=== PATIENT | male | born 1955 | race Caucasian/White ===

== ENCOUNTER → 2017-08-16 12:23 | Outpatient (CLI) | payer OTHER, SELFPAY ==
--- NOTE | 2017-08-16 | DI.ECHO.S_ITS ---
[place] [facility]---------+ [facility] +---------+ : : [address] : [address] : : : : [id number] : : : : Phone: [phone]+ Echocardiogram Report + + :Name: DEX ENCINAS Study Date: 08/16/2017 Height: 70 in : :[facility] Weight: 182 lb : : Gender: Male BSA: 2.0 m2 : :: 1955 Age: 62 yrs BP: 126/80 mmHg: :Reason For Study: Palpitations : : Performed By: Dari Torres : :Referring: JUSTIN RODRIGUEZ : + + Interpretation Summary The left ventricle is normal in size. The ejection fraction is estimated to be 60-65%. The right ventricle is mildly dilated. The right ventricular systolic function is normal. No significant valvular pathology seen. Procedure: A two-dimensional transthoracic echocardiogram with color flow and Doppler was performed. The study quality was technically good. There is no prior echocardiogram noted for this patient. The patient was in normal sinus rhythm during the exam. Left Ventricle: The left ventricle is normal in size. Proximal septal thickening is noted. There is no echo evidence for significant left ventricular outflow tract obstruction. There is no thrombus. The ejection fraction is estimated to be 60-65%. There are no focal wall motion abnormalities. Assessment of diastolic parameters indicates a relaxation abnormality of the left ventricle, consistent with normal filling pressures. Right Ventricle: The right ventricle is mildly dilated. The right ventricular systolic function is normal. Atria: The left atrium is moderately dilated. Right atrial size is normal. The interatrial septum is intact with no evidence for an atrial septal defect. Mitral Valve: The mitral valve leaflets appear mildly thickened, but open well. There is trace mitral regurgitation. Aortic Valve: The aortic valve is trileaflet. The aortic valve opens well. There is no aortic valve stenosis. There is trace aortic regurgitation. Tricuspid Valve: The tricuspid valve is normal in structure and function. The right ventricular systolic pressure is estimated at 22 mmHg assuming a right atrial pressure of 3 mm Hg. There is trace tricuspid regurgitation. Pulmonic Valve: The pulmonic valve is not well seen, but is grossly normal. There is no pulmonic valvular regurgitation. Great Vessels: The aortic root is normal size. The dimensions of the ascending aorta are normal. The IVC is of normal diameter and collapses greater than 50% with a sniff. This suggests a low right atrial pressure of 3 mm Hg. Pericardium/ Pleura There is no pericardial effusion. There is no pleural effusion. MMode/2D Measurements & Calculations LVIDd: 5.0 cm Ao root diam: 3.7 cm LVIDs: 3.2 cm Aortic Jxn: 2.9 cm FS: 36.9 % asc Aorta Diam: 3.3 cm EPSS: 0.96 cm Ao Arch Diam (Prox Trans): 3.4 cm IVSd: 0.94 cm LVPWd: 0.82 cm LV denise. diameter/BSA (cm/m^2): 2.5 LV sys. diameter/BSA (cm/m^2): 1.6 LA dimension: 4.3 cm RA long axis: 5.0 cm LA A2 area: 24.6 cm2 RA area: 17.9 cm2 LA A4 area: 28.5 cm2 RA vol: 54.7 ml LA length (vol): 6.0 cm RA : 27.3 ml/m2 LA vol: 99.7 ml IVC diam: 1.9 cm LA vol index: 49.7 ml/m2 RVDd major: 6.3 cm RVD1 (basal): 4.3 cm RVD2 (mid): 4.2 cm TAPSE: 3.0 cm Doppler Measurements & Calculations Ao V2 max: 176.9 cm/sec MV E max alfredo: 79.4 cm/sec Ao V2 mean: 117.0 cm/sec MV A max alfredo: 105.8 cm/sec Ao max P.5 mmHg MV E/A: 0.75 Ao mean P.2 mmHg Med Peak E' Alfredo: 6.1 cm/sec Ao V2 VTI: 32.4 cm E/E' med: 13.0 Lat Peak E' Alfredo: 6.6 cm/sec E/E' lat: 12.0 E/e' average: 12.5 MV dec time: 0.16 sec MV P1/2t: 50.1 msec TR max alfredo: 217.3 cm/sec MV P1/2t max alfredo: 78.9 cm/sec TR max P.9 mmHg MVA(P1/2t): 4.4 cm2 PA V2 max: 92.1 cm/sec PA V2 mean: 61.5 cm/sec PA mean P.7 mmHg PA Accel Time: 0.12 sec Reading Physician:PM
== END ==
PROVIDERS: Family Provider Registered Nurse; PCP Registered Nurse; Visit Provider Registered Nurse
DX: R00.2 Palpitations (principal)
CPT/HCPCS: 93306

== ENCOUNTER → 2017-11-06 09:07 | Outpatient (CLI) | payer OTHER, SELFPAY ==
--- NOTE | 2017-11-06 | DI.CT.S_ITS ---
PROCEDURE: CT CHEST WO CON INDICATIONS: CHEST PAIN TECHNIQUE: Noncontrast 5 mm thick sections acquired from the pulmonary apices to the posterior costophrenic angles. 7 mm thick coronal and sagittal MIP reformats were then acquired. For radiation dose reduction, the following was used: automated exposure control, adjustment of mA and/or kV according to patient size. COMPARISON: None. FINDINGS: Image quality: Excellent. Lungs and pleura: No acute air space opacities. No pleural effusions or pneumothorax. Central and peripheral airways are patent and normal in caliber. Mediastinum: Heart size is normal. No pericardial effusion. No mediastinal adenopathy by size criteria. Thoracic aorta and central pulmonary arteries are normal in size. Trace atheromatous calcifications are present at the thoracic aortic arch. Esophagus is normal in caliber. No hiatal hernia. Bones and chest wall: No suspicious bony lesions. No vertebral body compression fractures. No axillary or supraclavicular adenopathy by size criteria. Thyroid gland is unremarkable. Abdomen: Visualized upper abdominal solid organs and bowel loops appear normal in the absence of contrast. IMPRESSION: 1. No acute findings. No findings to explain patient's chest pain. Dictated by: Aminata Jordan M.D. on 11/06/2017 at 12:16 Approved by: Aminata Jordan M.D. on 11/06/2017 at 12:21
== END ==
PROVIDERS: PCP Registered Nurse; Visit Provider Registered Nurse
DX: R07.9 Chest pain, unspecified (principal)
CPT/HCPCS: 71250

== ENCOUNTER 2017-12-02 05:59 | Emergency (ER) | payer OTHER, SELFPAY ==
--- NOTE | 2017-12-02 06:00 | ED.CHESTPAIN ---
HPI - Chest Pain General Chief Complaint: Chest Pain Stated Complaint: chest pain Time Seen by Provider: 12/02/17 06:00 Source: patient Mode of arrival: ambulatory Limitations: no limitations History of Present Illness HPI narrative: 62-year-old male here for evaluation of left-sided chest pain. Patient states that it started yesterday sometime between 930 and 10 o'clock in the morning. He states that it was a fairly sudden onset however gradually worsened. He states that he had it all day yesterday. Went to bed with it last night. Woke up with it this morning. He states when he woke up with it this morning it was more ?sharp ?so he came in to be evaluated. He had chest pain earlier this year for which he was evaluated for. He states that he was seen by his doctor and had an echocardiogram which I was able to see the results which showed a normal ejection fraction and normal cardiac wall motion. He states that the pain today is different from the pain earlier in the year. He states that the pain today is more sharp, worse when he touches it, pinpoint, worse when he takes a big deep breath, and worse with moving his left arm. No nausea vomiting. No fevers. No shortness of breath. No lower extremity swelling. Related Data Allergies Allergy/AdvReac Type Severity Reaction Status Date / Time No Known Drug Allergies Allergy Verified 12/02/17 06:09 Review of Systems Constitutional Denies fatigue, Denies fever(s) and Denies headache(s) ENT Ears, Nose, Mouth, and Throat: Denies vertigo and Denies headache(s) Cardiovascular Reports chest pain, Denies palpitations and Denies dyspnea Respiratory Denies cough, Denies dyspnea and Denies wheezing Gastrointestinal Gastrointestinal: Denies abdominal pain, Denies nausea and Denies vomiting Genitourinary Denies dysuria Musculoskeletal Denies myalgias and Denies arthralgias Integumentary/Breasts Denies lesions and Denies rash Neurologic Denies vertigo and Denies headache(s) Endocrine Denies fatigue and Denies palpitations Hematologic/Lymphatic Denies easy bleeding and Denies easy bruising Allergic/Immunologic Denies wheezing PENDING SALE TO [facility] Medical History Hypertension (Acute) Surgical History No pertinent past surgical history (Acute) Social History Smoking Status: Former smoker Exam Initial Vital Signs Initial Vital Signs: Vital Signs Temperature 98.2 F 12/02/17 06:06 Pulse Rate 68 12/02/17 06:06 Respiratory Rate 17 12/02/17 06:06 Blood Pressure 190/103 H 12/02/17 06:06 Pulse Oximetry 99 12/02/17 06:06 Const General: cooperative, healthy appearing, comfortable, well developed, well groomed and No acute distress Orientation: alert, awake and oriented x3 HENMT Head: normal to inspection and normocephalic Chest Other: Patient with pinpoint chest tenderness just left of the sternum at the level of the nipple. Improves with moving superior and inferior lateral to this point. No crepitus felt. Resp Effort & Inspection: normal respiratory effort Auscultation: clear to auscultation bilaterally Cardio Rate: regular rate Rhythm: regular rhythm Pulses: radial pulses present GI Inspection: non-distended Palpation: soft, No firm and No tender Skin Lesions: no lesions Rashes: no rashes Neuro General: alert, awake and oriented x3 Extrem General: normal to inspection, capillary refill normal, no pedal edema and No edema Psych Appearance: grossly normal and well kempt Course Orders Ordered: ED Orders 12/02/17 06:00 B Type Natriuretic Peptide Stat Basic Metabolic Panel Stat Complete Blood Count AUTO DIFF Stat Troponin I Stat 12/02/17 06:01 XR chest 1V Stat EKG-12 Lead Stat Discontinued Medications Aspirin (Aspirin Chew) 324 mg PO NOW ONE Stop: 12/02/17 06:03 Last Admin: 12/02/17 06:24 Dose: Vital Signs - 8 hr 12/02/17 06:06 Temperature 98.2 F Pulse Rate 68 Respiratory Rate 17 Blood Pressure 190/103 H Pulse Oximetry 99 MDM - Chest Pain Medical Records Data Attestation: I reviewed the patient's medical records. Lab Data Attestation: I reviewed the patient's lab results. Result diagrams: 12/02/17 06:00 12/02/17 06:00 Lab Results 12/02/17 12/02/17 Range/Units 06:00 06:00 WBC 7.1 (4.5-11.0) X10^3/uL RBC 4.83 (4.5-5.9) X10^6/uL Hgb 14.7 (13.5-17.5) g/dL Hct 42.4 (41-53) % MCV 87.8 (80-100) fL MCH 30.5 (26-34) PG MCHC 34.7 (30-36) % RDW 13.0 (11.6-14.8) % Plt Count 246 (150-400) X10^3/uL Neut % (Auto) 60.3 (50-75) % Lymph % (Auto) 23.7 L (25-40) % [place] % (Auto) 11.4 (3-14) % Eos % (Auto) 3.7 (2-4) % Baso % (Auto) 0.9 (0-2) % Neut # (Auto) 4300 (5368-0219) /uL Sodium 141 (137-145) mmol/L Potassium 4.2 (3.4-5.1) mmol/L Chloride 104 (98-107) mmol/L Carbon Dioxide 26 (22-32) mmol/L BUN 20 (9-20) mg/dL Creatinine 1.00 (0.66-1.25) mg/dL Estimated GFR > 60.0 (>60) mL/min BUN/Creatinine Ratio 20.0 (6-22) Glucose 125 H (80-110) mg/dL Calcium 11.2 H (8.4-10.2) mg/dL Troponin I < 0.012 (0.01-0.034) ng/mL B-Natriuretic Peptide < 100.0 (<100) Imaging Data Chest x-ray: Attestation: I personally reviewed and interpreted this imaging study as follows: My impression: No pneumothorax No focal consolidations Normal size heart ECG Data Attestation: I personally reviewed and interpreted this ECG as follows: Prior ECG tracings: available for review Interpretation: Sinus rhythm Ventricular rate is 63 Occasional PVCs Normal QRS Normal QTC No ST T wave changes Comparison EKG dated 08/21/2015 This EKG has inverted T-waves in lead V4 V5 and V6 which were not present today's MDM Narrative Medical decision making narrative: Patient with a nonischemic EKG. Has a negative troponin greater than 12 hr after the onset of his symptoms. Labs unremarkable. Has reproducible left-sided chest pain. Have low suspicion for ACS given his presentation. Discussed this with the patient. Informed him that he needed to contact his primary care doctor for follow-up. He was given return precautions. He expressed understanding and agreement with plan Discharge Plan Departure Patient Disposition: Home Clinical Impression: Acute chest wall pain Instructions: DI for Costochondritis Activity Restrictions/Additional Instructions: Continue all of your medications as directed. Call your primary care doctor for a follow-up. Return to the emergency department for any new or worsening symptoms
--- NOTE | 2017-12-02 06:01 | DI.RAD.S_ITS ---
PROCEDURE: XR CHEST 1V INDICATIONS: chest pain TECHNIQUE: One view of the chest was acquired. COMPARISON: [facility], , CHEST 2 VIEW, 04/08/2013, 7:09. FINDINGS: Surgical changes and devices: None. Lungs and pleura: No pleural effusions or pneumothorax. Lungs are clear. Mediastinum: Mediastinal contours appear normal. Heart size is normal. Bones and chest wall: No suspicious bony lesions. Overlying soft tissues appear unremarkable. IMPRESSION: No acute cardiopulmonary disease process. Dictated by: Delia Bush MD, PhD on 12/02/2017 at 7:28 Approved by: Delia Bush MD, PhD on 12/02/2017 at 7:28
[2017-12-02 06:06] VITALS: BP 190/103; PULSE 68; RESP 17; TEMP 36.8; O2SAT 99; BMI 25.8
[2017-12-02 06:13] LABS: Add Manual Diff / Slide Review NO; Basophils Percent Auto 0.9 % (0-2); Eosinophils Percent Auto 3.7 % (2-4); Hematocrit 42.4 % (41-53); Hemoglobin 14.7 g/dL (13.5-17.5); Lymphocytes Percent Auto 23.7 % (25-40); Mean Corpuscular HGB Conc 34.7 % (30-36); Mean Corpuscular Hemoglobin 30.5 PG (26-34); Mean Corpuscular Volume 87.8 fL (80-100); Monocytes Percent Auto 11.4 % (3-14); Neutrophils Absolute Auto 4300 /uL (3000-5900); Neutrophils Percent Auto 60.3 % (50-75); Platelet Count 246 X10^3/uL (150-400); Red Blood Cell Count 4.83 X10^6/uL (4.5-5.9); White Blood Cell Count 7.1 X10^3/uL (4.5-11.0)
[2017-12-02 06:28] LABS: Blood Urea Nitrogen 20 mg/dL (9-20); Calcium 11.2 mg/dL (8.4-10.2); Carbon Dioxide 26 mmol/L (22-32); Chloride 104 mmol/L (98-107); Estimated Glomerular Filt Rate > 60.0 mL/min (>60); Glucose 125 mg/dL (80-110); HEMOLYSIS < 15 (0-50); Potassium 4.2 mmol/L (3.4-5.1); Sodium 141 mmol/L (137-145)
[2017-12-02 06:33] LABS: B Type Natriuretic Peptide < 100.0 (<100)
[2017-12-02 06:39] LABS: Troponin I < 0.012 ng/mL (0.01-0.034)
[2017-12-02 06:45] VITALS: BP 135/89; PULSE 57; RESP 20; O2SAT 96
--- NOTE | 2017-12-05 16:10 | PC.NURSE ---
follow up call, pt feeling fine, had wonderful visits, no improvement needed.
== END 2017-12-02 06:58 | disposition home or self-care (01) ==
PROVIDERS: Emergency Provider Emergency Medicine; PCP Registered Nurse
DX: R07.89 Other chest pain (principal)
CPT/HCPCS: 36591; 71045; 80048; 83880; 84484; 85025; 93005; 99282; 99285

== ENCOUNTER 2018-01-19 16:38 | Emergency (ER) | payer OTHER, SELFPAY ==
--- NOTE | 2018-01-19 16:43 | DI.RAD.S_ITS ---
PROCEDURE: XR CHEST 1V INDICATIONS: chest pain TECHNIQUE: One view of the chest was acquired. COMPARISON: [facility], CR, XR CHEST 1V, 12/02/2017, 6:12. FINDINGS: Surgical changes and devices: None. Lungs and pleura: No pleural effusions or pneumothorax. Minimal increased pulmonary vascularity. Mediastinum: Mediastinal contours appear normal. Heart size is minimally prominent. Bones and chest wall: No suspicious bony lesions. Overlying soft tissues appear unremarkable. IMPRESSION: Minimal increased pulmonary vascularity, suggestive of edema. Dictated by: Angela Chin M.D. on 01/19/2018 at 17:53 Approved by: Angela Chin M.D. on 01/19/2018 at 17:54
[2018-01-19 16:50] VITALS: BP 159/82; PULSE 64; RESP 18; TEMP 37.1; O2SAT 100; BMI 25.1
--- NOTE | 2018-01-19 16:54 | ED.CHESTPAIN ---
HPI - Chest Pain General Chief Complaint: Chest Pain Stated Complaint: left side neck and arm pain,elevated BP Time Seen by Provider: 01/19/18 16:42 Source: patient Mode of arrival: ambulatory Limitations: no limitations History of Present Illness HPI narrative: Patient is a 62-year-old male here for evaluation of left upper back pain that he has had for the past 2 days. He states that it is now radiating down his left arm and up into the left side of his neck. Denies any specific trauma. States that it is ?deep down inside ?. States that it does get worse with movement of his left arm. He cannot make it worse with palpation. No shortness of breath. Has never had anything like this before. No abdominal pain. Related Data Previous Rx's Medication Instructions Recorded cyclobenzaprine 10 mg PO TID PRN #12 tab 01/19/18 Allergies Allergy/AdvReac Type Severity Reaction Status Date / Time No Known Drug Allergies Allergy Verified 01/19/18 16:55 Review of Systems Constitutional Denies fever(s), Denies headache(s) and Denies weakness ENT Ears, Nose, Mouth, and Throat: Denies headache(s), Denies neck mass, Reports neck pain, Denies disequilibrium, Denies sinus pressure and Denies sore throat Cardiovascular Denies chest pain, Denies chest pain with activity, Denies palpitations and Denies dyspnea Respiratory Denies cough and Denies dyspnea Gastrointestinal Gastrointestinal: Denies abdominal pain, Denies nausea and Denies vomiting Musculoskeletal Reports back pain (Left upper back), Denies myalgias, Reports arthralgias (Left shoulder), Denies limited range of motion, Denies muscle weakness, Reports neck pain, Reports radiating pain into limb (Left arm) and Reports tingling (Left arm) Integumentary/Breasts Denies lesions and Denies rash Neurologic Denies headache(s), Reports tingling (Left arm), Denies disequilibrium and Denies weakness Endocrine Denies palpitations Hematologic/Lymphatic Comments: not on anticoagulation Allergic/Immunologic Denies urticaria [facility] Social History Smoking Status: Former smoker Exam Initial Vital Signs Initial Vital Signs: Vital Signs Temperature 98.7 F 01/19/18 16:50 Pulse Rate 64 01/19/18 16:50 Respiratory Rate 18 01/19/18 16:50 Blood Pressure 159/82 H 01/19/18 16:50 Pulse Oximetry 100 01/19/18 16:50 Const General: cooperative, healthy appearing, comfortable, well developed, well groomed and No acute distress Orientation: alert, awake and oriented x3 HENMT Head: normal to inspection, normocephalic and atraumatic Neck Neck: full ROM and no meningeal signs Resp Effort & Inspection: normal respiratory effort Auscultation: clear to auscultation bilaterally Cardio Rate: regular rate Rhythm: regular rhythm Pulses: radial pulses present on the left Back/Spine/Pelvis Other: Patient with out tenderness to palpation around the left shoulder. Unable to reproduce any of his symptoms. Skin Lesions: no lesions Rashes: no rashes Neuro Other: Sensation intact to light touch left upper extremity Extrem Left upper extremity: normal to inspection, full ROM, normal capillary refill and shoulder/upper arm Details: inspection abnormal and normal ROM; no tenderness and no swelling; no edema Course Orders Ordered: ED Orders 01/19/18 16:43 XR chest 1V Stat EKG-12 Lead Stat 01/19/18 17:20 Complete Blood Count AUTO DIFF Stat Comprehensive Metabolic Panel Stat Lipase Stat Partial Thromboplastin Time Stat Prothrombin Time INR Stat Troponin I Stat Vital Signs - 8 hr 01/19/18 16:50 01/19/18 17:30 Temperature 98.7 F Pulse Rate 64 63 Respiratory Rate 18 14 Blood Pressure 159/82 H Blood Pressure [Right Arm] 120/78 Pulse Oximetry 100 96 MDM - Chest Pain Lab Data Attestation: I reviewed the patient's lab results. Result diagrams: 01/19/18 17:20 01/19/18 17:20 Lab Results 01/19/18 01/19/18 01/19/18 Range/Units 17:20 17:20 17:20 WBC 9.1 (4.5-11.0) X10^3/uL RBC 4.70 (4.5-5.9) X10^6/uL Hgb 14.1 (13.5-17.5) g/dL Hct 41.9 (41-53) % MCV 89.2 (80-100) fL MCH 30.0 (26-34) PG MCHC 33.6 (30-36) % RDW 13.1 (11.6-14.8) % Plt Count 255 (150-400) X10^3/uL Neut % (Auto) 66.0 (50-75) % Lymph % (Auto) 23.8 L (25-40) % [place] % (Auto) 7.6 (3-14) % Eos % (Auto) 1.9 L (2-4) % Baso % (Auto) 0.7 (0-2) % Neut # (Auto) 6000 H (5452-4403) /uL PT 11.9 (10.1-12.7) SECONDS INR 1.1 (0.9-1.3) APTT 29 (26.4-36.2) SECONDS Sodium (137-145) mmol/L Potassium (3.4-5.1) mmol/L Chloride (98-107) mmol/L Carbon Dioxide (22-32) mmol/L BUN (9-20) mg/dL Creatinine (0.66-1.25) mg/dL Estimated GFR (>60) mL/min BUN/Creatinine Ratio (6-22) Glucose (80-110) mg/dL Calcium (8.4-10.2) mg/dL Total Bilirubin (0.2-1.3) mg/dL AST (17-59) IU/L ALT (21-72) IU/L Alkaline Phosphatase (38-126) U/L Troponin I < 0.012 (0.01-0.034) ng/mL Total Protein (6.3-8.2) g/dL Albumin (3.5-5.0) g/dL Globulin (1.7-4.1) g/dL Albumin/Globulin Ratio (1.0-2.8) Lipase (23-300) U/L 11/25/18 Range/Units 17:20 WBC (4.5-11.0) X10^3/uL RBC (4.5-5.9) X10^6/uL Hgb (13.5-17.5) g/dL Hct (41-53) % MCV (80-100) fL MCH (26-34) PG MCHC (30-36) % RDW (11.6-14.8) % Plt Count (150-400) X10^3/uL Neut % (Auto) (50-75) % Lymph % (Auto) (25-40) % [place] % (Auto) (3-14) % Eos % (Auto) (2-4) % Baso % (Auto) (0-2) % Neut # (Auto) (8982-2513) /uL PT (10.1-12.7) SECONDS INR (0.9-1.3) APTT (26.4-36.2) SECONDS Sodium 140 (137-145) mmol/L Potassium 4.0 (3.4-5.1) mmol/L Chloride 101 (98-107) mmol/L Carbon Dioxide 27 (22-32) mmol/L BUN 21 H (9-20) mg/dL Creatinine 1.00 (0.66-1.25) mg/dL Estimated GFR > 60.0 (>60) mL/min BUN/Creatinine Ratio 21.0 (6-22) Glucose 113 H (80-110) mg/dL Calcium 12.4 H (8.4-10.2) mg/dL Total Bilirubin 0.3 (0.2-1.3) mg/dL AST 34 (17-59) IU/L ALT 46 (21-72) IU/L Alkaline Phosphatase 61 (38-126) U/L Troponin I (0.01-0.034) ng/mL Total Protein 6.9 (6.3-8.2) g/dL Albumin 4.3 (3.5-5.0) g/dL Globulin 2.6 (1.7-4.1) g/dL Albumin/Globulin Ratio 1.7 (1.0-2.8) Lipase 125 (23-300) U/L Imaging Data Chest x-ray: Radiologist's impression: [address] [address] XRay Report Signed Patient: Stefan Acuña LMR#: [id number] : 4Acct:[id number] Age/Sex: 62 / MDate of Service: 01/19/18 Loc: ED Accession Number: [id number] Procedure: XR chest 1V Ordering Provider: Pardeep Gonzalez D.O. PROCEDURE: XR CHEST 1V INDICATIONS: chest pain TECHNIQUE: One view of the chest was acquired. COMPARISON: [facility], CR, XR CHEST 1V, 12/02/2017, 6:12. FINDINGS: Surgical changes and devices: None. Lungs and pleura: No pleural effusions or pneumothorax. Minimal increased pulmonary vascularity. Mediastinum: Mediastinal contours appear normal. Heart size is minimally prominent. Bones and chest wall: No suspicious bony lesions. Overlying soft tissues appear unremarkable. IMPRESSION: Minimal increased pulmonary vascularity, suggestive of edema. Dictated by: Angela Chin M.D. on 01/19/2018 at 17:53 Approved by: Angela Chin M.D. on 01/19/2018 at 17:54 ECG Data Attestation: I personally reviewed and interpreted this ECG as follows: Prior ECG tracings: not available for review Interpretation: Sinus rhythm Ventricular rate is 62 Normal axis Normal intervals Normal QRS Nonspecific ST T wave changes MDM Narrative Medical decision making narrative: Patient with 2 days of consistent symptoms. Was not reproducible with palpation however has and nonischemic EKG and negative troponin. Low suspicion for ACS. Also has a normal lipase and no abdominal pain and no CVA tenderness. No rashes. Hold on further workup for now. Patient was instructed to continue his anti-inflammatories. Will send home with prescription for muscle relaxers. He was given return precautions. He expressed understanding and agreement this plan. Discharge Plan Departure Patient Disposition: Home Clinical Impression: Muscle strain Instructions: DI for Muscle Strain Activity Restrictions/Additional Instructions: Recommend that you continue the anti-inflammatory that your taking with food. Contact your primary care doctor for follow-up. If your symptoms worsened he develop any new symptoms to include chest pain or shortness of breath please return to the emergency department. Prescriptions: New cyclobenzaprine 10 mg tablet 10 mg PO TID PRN (Reason: muscle spasm) Qty: 12 RF: 0
[2018-01-19 17:30] VITALS: BP 120/78; PULSE 63; RESP 14; O2SAT 96
[2018-01-19 17:33] LABS: Add Manual Diff / Slide Review NO; Basophils Percent Auto 0.7 % (0-2); Eosinophils Percent Auto 1.9 % (2-4); Hematocrit 41.9 % (41-53); Hemoglobin 14.1 g/dL (13.5-17.5); Lymphocytes Percent Auto 23.8 % (25-40); Mean Corpuscular HGB Conc 33.6 % (30-36); Mean Corpuscular Volume 89.2 fL (80-100); Monocytes Percent Auto 7.6 % (3-14); Neutrophils Absolute Auto 6000 /uL (3000-5900); Platelet Count 255 X10^3/uL (150-400); Red Cell Distribution Width 13.1 % (11.6-14.8); White Blood Cell Count 9.1 X10^3/uL (4.5-11.0)
[2018-01-19 17:40] LABS: INR 1.1 (0.9-1.3); Prothrombin Time 11.9 SECONDS (10.1-12.7)
[2018-01-19 17:43] LABS: PTT Partial Thromboplastin Tim 29 SECONDS (26.4-36.2)
[2018-01-19 17:44] LABS: Alanine Aminotransferase 46 IU/L (21-72); Albumin 4.3 g/dL (3.5-5.0); Albumin Globulin Ratio 1.7 (1.0-2.8); Alkaline Phosphatase 61 U/L (38-126); Aspartate Aminotransferase 34 IU/L (17-59); Bilirubin Total 0.3 mg/dL (0.2-1.3); Blood Urea Nitrogen 21 mg/dL (9-20); Calcium 12.4 mg/dL (8.4-10.2); Carbon Dioxide 27 mmol/L (22-32); Chloride 101 mmol/L (98-107); Estimated Glomerular Filt Rate > 60.0 mL/min (>60); Globulin 2.6 g/dL (1.7-4.1); Glucose 113 mg/dL (80-110); HEMOLYSIS < 15 (0-50); Lipase 125 U/L (23-300); Sodium 140 mmol/L (137-145); Total Protein 6.9 g/dL (6.3-8.2)
[2018-01-19 18:05] LABS: Troponin I < 0.012 ng/mL (0.01-0.034)
[2018-01-19 18:28] VITALS: BP 113/72; PULSE 55; RESP 16; O2SAT 95
== END 2018-01-19 18:28 | disposition home or self-care (01) ==
PROVIDERS: Emergency Provider Emergency Medicine; PCP Registered Nurse
DX: T14.8XXA Other injury of unspecified body region, initial encounter (principal)
CPT/HCPCS: 36591; 71045; 80053; 83690; 84484; 85025; 85610; 85730; 93005; 99282; 99285

== ENCOUNTER → 2018-06-20 08:56 | Outpatient (CLI) | payer OTHER, SELFPAY ==
--- NOTE | 2018-06-20 09:45 | DI.CT.S_ITS ---
PROCEDURE: CT KIDNEY URETER BLADDER (KUB) INDICATIONS: HISTORY OF KIDNEY STONES/GROSS HEMATURIA TECHNIQUE: Noncontrast 5 mm thick sections acquired from the diaphragms to the symphysis. 5 mm thick coronal and sagittal reformats were then performed. For radiation dose reduction, the following was used: automated exposure control, adjustment of mA and/or kV according to patient size. COMPARISON: [facility], CR, XR CHEST 1V, 01/19/2018, 17:13. [facility], CR, XR CHEST 1V, 12/02/2017, 6:12. [facility], CT, CT CHEST WO CON, 11/06/2017, 9:13. [facility], CT, KIDNEY/ URETER/BLADDER, 07/28/2007, 10:16. [facility], CT, KIDNEY/ URETER/BLADDER, 07/24/2007, 19:24. FINDINGS: Image quality: Excellent. Lung bases: Lung bases are clear. Heart size is normal. Urinary system: Both kidneys are normal in size. No right-sided kidney stones but there is a large dense calculus involving the ureteropelvic junction on the left measuring up to 1.5 cm AP and 1.0 cm transverse, with an internal radiodensity of up to 1270 Hounsfield units. No right-sided ydronephrosis or perinephric fat stranding but there is mild hydronephrosis and slight perinephric edema on the left. The right ureter appears non-dilated throughout its expected course of the left ureter is mildly dilated to the area just above the bladder level where 2 separate small calculi can be seen within the far distal left ureter measuring up to 2-3 mm in maximal dimension. Bladder wall thickness is normal; no calcified bladder stones. Other solid organs: Liver is normal in size. Gallbladder appears normal. Pancreas is normal in contours. Spleen is normal in size. No adrenal nodules. Peritoneum and bowel: Unenhanced bowel loops demonstrate normal wall thickness and caliber. No free fluid or air. Nodes and vessels: No retroperitoneal or mesenteric adenopathy by size criteria. Aorta and inferior vena cava are normal in caliber. Abdominal wall: No ventral hernias. Pelvis: No free pelvic fluid. No inguinal hernias or adenopathy. What appears to be several enteric staple lines are seen at the right lower quadrant. Bones: No suspicious bony lesions. No vertebral body compression fractures. IMPRESSION: Mild left-sided hydronephrosis associated with a large dense calculus impacted at the ureteropelvic junction measuring up to 1.5 cm, which will not pass without urologic intervention. Within the far distal left ureter 2 additional stones are seen measuring up to 3 mm in maximal dimension located just above the bladder level. These produce mild left hydroureter. Within the right lower quadrant what appears to based possibly 2 separate enteric staple lines, one in the general area of the appendix and the second anterior against the peritoneal margin, abutting the cecal tip. Dictated by: Tristen Aponte M.D. on 06/20/2018 at 9:44 Approved by: Tristen Aponte M.D. on 06/20/2018 at 9:57
== END ==
PROVIDERS: PCP Registered Nurse; Visit Provider Registered Nurse
DX: R31.0 Gross hematuria (principal); N13.0 Hydronephrosis with ureteropelvic junction obstruction; Z87.442 Personal history of urinary calculi
CPT/HCPCS: 74176

== ENCOUNTER → 2019-03-19 06:43 | Outpatient (CLI) | payer OTHER, SELFPAY ==
--- NOTE | 2019-03-19 | DI.US.S_ITS ---
PROCEDURE: US RENAL COMPLETE INDICATIONS: HISTORY URETERAL CALCULUS TECHNIQUE: Real-time scanning was performed of the kidneys and bladder, with image documentation. COMPARISON: None. FINDINGS: Kidneys: Kidneys are normal in size. Right kidney measures 13.0 cm long; left kidney measures 12.7 cm long. Right renal cortical thickness is 1.5 cm; left renal cortical thickness is 1.8 cm. Renal cortical echotexture is normal. No hydronephrosis. A 5 mm nonobstructing left renal calcification involving the midpole Bladder: Pre-void bladder volume is 198 mL. Post-void residual is 22 mL. Pre-void images demonstrate no intraluminal masses or stones. On pre-void images, bilateral ureteral jets are noted with color Doppler interrogation. (Of note, ureteral jets may not be detectable in up to 25% of cases due to insufficient differences in specific gravity between ureteral and bladder urine). Miscellaneous: No free pelvic fluid. IMPRESSION: 5 mm nonobstructing left renal calcification; otherwise normal appearance of the kidneys. Dictated by: Glen Kowalski [facility] Interpreted: Trsiten Aponte MD on 03/19/2019 at 10:56 Approved by: Tristen Aponte M.D. on 03/19/2019 at 15:31
== END ==
PROVIDERS: PCP Registered Nurse; Visit Provider Urology
DX: N20.0 Calculus of kidney (principal); Z87.442 Personal history of urinary calculi
CPT/HCPCS: 76770

== ENCOUNTER 2019-07-07 13:04 | Emergency (ER) | payer OTHER, SELFPAY ==
--- NOTE | 2019-07-07 13:36 | ED.CHESTPAIN ---
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 He complains that he is head chest pain today at least twice associated with palpitations. He describes his palpitations as pounding in his chest or feeling his heart beat but does not have racing of the heart. At times he has felt dizzy and lightheaded and slightly faint but has not passed out. He had chest pain last night when he was walking his dog and again today when he was working and walking and this afternoon while walking his dog. Describes the discomfort as though it is a tight squeezing discomfort but does not radiate up into his neck jaw shoulder arm or back. He states that it is also dull and achy. When it occurs it lasts approximately 20-25 minutes. He has had no syncope fall or injury. The pain relieved resolves on its own. Patient states that he has been seen by Cardiology before and told that it was not coming from his heart. However the last time that he was seen by Cardiology was in 2011 and that was when he had his last stress test. He states that sometimes when he has this discomfort he becomes very sweaty. He has also had episodes of nausea without vomiting. He denies smoking cigarettes drinking alcohol or using any drugs. Related Data Home Medications Medication Instructions Recorded Confirmed No Known Home Medications 07/07/19 07/07/19 Allergies Allergy/AdvReac Type Severity Reaction Status Date / Time No Known Drug Allergies Allergy Verified 01/19/18 16:55 Review of Systems Review of Systems Narrative: REVIEW OF SYSTEMS: CONSTITUTIONAL: He denies any fever chills but has had intermittent sweats. NEUROLOGICAL: He has had a mild headache but denies any numbness tingling paresthesias anesthesia is paresis or paralysis. EENT: He denies any history of a sore throat sinus congestion dysphagia change in vision diplopia. CARDIO-PULMONARY: He has had the chest tightness and pain as described associated with palpitations and he has a dry cough secondary to his lisinopril. He otherwise denies any shortness of breath or difficulty in breathing. ENDOCRINE: He states that he has a history of hyperparathyroidism GASTROINTESTINAL: He denies any abdominal pain has had normal bowel movements without diarrhea or vomiting but has been nauseous with the chest discomfort. GENITAL URINARY: He denies any urinary symptoms frequency or urgency. MUSCULOSKELETAL/ RHEUMATOLOGICAL: He has had no significant back pain or muscle aches other than normal. Patient History Medical History Hypertension (Acute) Surgical History No pertinent past surgical history (Acute) Social History Smoking Status: Former smoker Smoking Status: Former smoker alcohol intake frequency: 0-2 drinks per day Substance Use Type: does not use Exam Narrative Exam Narrative: PHYSICAL EXAM: CONSTITUTIONAL: Awake, Alert, Oriented, Coherent, Cooperative in NAD. Does not appear toxic or ill. The patient seems to downplay his discomfort. HEAD: AT/NC EENT: PERRL, FROM of eyes, no discharge, no nystagmus MOUTH: Is wearing a mask. NECK: Supple, no obvious JVD, Trachea is midline without stridor, no palpable LN. SPINE: Palpationof the cervical, Thoracic, Lumbar or Sacral spine reveals no gross deformity or tenderness. No CVA tenderness. THORAX: No deformity, retractions, chest wall tenderness. LUNGS: Clear, symmetrical breath sounds without respiratory distress. HEART: Normal heart tones, regular rhythm and rate without murmur. ABDOMEN: Soft, non-tender, normal bowel sounds without guarding, rebound, rigidity or palpable mass. EXTREMITIES: No edema, deformity, tenderness or cyanosis. SKIN: No rash, bruising, petechiae or purpura. NEURO: Awake, alert, oriented, conversive, cranial nerves II-XII are symmetrical , moves all 4 extremities and is ambulatory. Initial Vital Signs Initial Vital Signs: Vital Signs Pulse Rate 88 07/07/19 14:23 Blood Pressure 143/84 H 07/07/19 14:23 Course Course Course Narrative: 1543: The patient's CPK was 234, troponin was less than 0.012, lipase was 340. An ultrasound of the gallbladder will be obtained on the patient. D Dimer less than 200. The patient will have a 2 hour troponin checked since he describes his chest discomfort as chest tightness. He has been diagnosed to have hyperparathyroidism but he has not had his parathyroids removed. 1700 the patient's ultrasound of the gallbladder reveals a hyperechoic liver echotexture presumed hepatic steatosis. Echogenic focus at the gallbladder wall likely a small gallbladder polyp or adherent stone. 1703: The patient was informed that his ultrasound did not show any gallstones but showed probably stay ptosis and a fatty liver. He may have a gallbladder polyp or even a stone adherent to the wall of the gallbladder. He then pointed and was most definitive same that he normally gets pain in this area and was pointing to the left upper quadrant of the abdomen lower left chest which is exactly in the area of his pancreas. He was advised that if his troponin is negative we would discharge him and that most likely his pain and discomfort is due to the pancreatitis. He was informed that he needs to have his parathyroid gland checked and surgically removed because the hypercalcemia can cause him to have pancreatitis . 1746: His repeat troponin was normal. Orders Ordered: ED Orders 07/07/19 13:00 D Dimer Stat 07/07/19 13:30 Complete Blood Count AUTO DIFF Stat Comprehensive Metabolic Panel Stat Lipase Stat Magnesium Stat Partial Thromboplastin Time Stat Prothrombin Time INR Stat Troponin & CK Cardiac Panel Stat 07/07/19 13:37 XR chest 1V Stat EKG-12 Lead Stat 07/07/19 15:41 US abdomen limited Stat 07/07/19 17:12 Troponin I Stat Discontinued Medications Aspirin (Aspirin) 325 mg PO NOW ONE Stop: 07/07/19 14:02 Last Admin: 07/07/19 14:17 Dose: Not Given Documented by: CHARLOTTE Sodium Chloride (Normal Saline 0.9%) 1,000 mls @ 1,000 mls/hr IV BOLUS ONE Stop: 07/07/19 16:53 Last Infusion: 07/07/19 16:58 Dose: 0 mls/hr Documented by: Admin: 07/07/19 16:03 Dose: 1,000 mls/hr Documented by: GENO Nitroglycerin (Nitrostat) 0.4 mg SL [id number] PRN PRN Reason: Chest Pain Last Admin: 07/07/19 14:27 Dose: 0.4 mg Documented by: Admin: 07/07/19 14:23 Dose: 0.4 mg Documented by: CHARLOTTE Vital Signs Vital signs: Vital Signs - 8 hr 07/07/19 14:23 07/07/19 14:30 07/07/19 15:30 Pulse Rate 88 90 72 Respiratory Rate 14 16 Blood Pressure 143/84 H Blood Pressure [Left Arm] 113/78 113/78 Pulse Oximetry 99 07/07/19 16:58 Pulse Rate 52 L Respiratory Rate 16 Blood Pressure Blood Pressure [Left Arm] 141/77 H Pulse Oximetry 99 MDM - Chest Pain Medical Records Data Attestation: I reviewed the patient's medical records. Lab Data Attestation: I reviewed the patient's lab results. Result diagrams: 07/07/19 13:30 07/07/19 13:30 Labs: Lab Results 07/07/19 07/07/19 07/07/19 Range/Units 13:00 13:30 13:30 WBC 9.4 (4.5-11.0) X10^3/uL RBC 5.05 (4.5-5.9) X10^6/uL Hgb 14.9 (13.5-17.5) g/dL Hct 44.3 (41-53) % MCV 87.8 (80-100) fL MCH 29.6 (26-34) PG MCHC 33.7 (30-36) % RDW 13.1 (11.6-14.8) % Plt Count 264 (150-400) X10^3/uL Neut % (Auto) 77.9 H (50-75) % Lymph % (Auto) 15.4 L (25-40) % Mcmullen % (Auto) 5.6 (3-14) % Eos % (Auto) 0.5 L (2-4) % Baso % (Auto) 0.6 (0-2) % Neut # (Auto) 7300 H (9323-7985) /uL Lymph # (Auto) 1400 (2848-3162) /uL Mcmullen # (Auto) 500 (0-900) /uL Eos # (Auto) 0 (0-450) /uL Baso # (Auto) 100 (0-100) /uL PT 12.2 (10.1-12.7) SECONDS INR 1.1 (0.9-1.3) APTT 33 D (26.4-36.2) SECONDS D-Dimer < 200 (<230) ng/mL Sodium (137-145) mmol/L Potassium (3.4-5.1) mmol/L Chloride (98-107) mmol/L Carbon Dioxide (22-32) mmol/L BUN (9-20) mg/dL Creatinine (0.66-1.25) mg/dL Estimated GFR (>60) mL/min BUN/Creatinine Ratio (6-22) Glucose (80-110) mg/dL Calcium (8.4-10.2) mg/dL Magnesium (1.6-2.3) mg/dL Total Bilirubin (0.2-1.3) mg/dL AST (17-59) IU/L ALT (<50) IU/L Alkaline Phosphatase (38-126) U/L Total Creatine Kinase (55-170) U/L CK-MB (CK-2) (<2.37) ng/mL CK-MB (CK-2) Rel Index (1.5-5.0) % Troponin I (0.01-0.034) ng/mL Total Protein (6.3-8.2) g/dL Albumin (3.5-5.0) g/dL Globulin (1.7-4.1) g/dL Albumin/Globulin Ratio (1.0-2.8) Lipase (23-300) U/L 07/07/19 07/07/19 07/07/19 Range/Units 13:30 13:30 17:12 WBC (4.5-11.0) X10^3/uL RBC (4.5-5.9) X10^6/uL Hgb (13.5-17.5) g/dL Hct (41-53) % MCV (80-100) fL MCH (26-34) PG MCHC (30-36) % RDW (11.6-14.8) % Plt Count (150-400) X10^3/uL Neut % (Auto) (50-75) % Lymph % (Auto) (25-40) % Mcmullen % (Auto) (3-14) % Eos % (Auto) (2-4) % Baso % (Auto) (0-2) % Neut # (Auto) (2431-6488) /uL Lymph # (Auto) (4511-4021) /uL Mcmullen # (Auto) (0-900) /uL Eos # (Auto) (0-450) /uL Baso # (Auto) (0-100) /uL PT (10.1-12.7) SECONDS INR (0.9-1.3) APTT (26.4-36.2) SECONDS D-Dimer (<230) ng/mL Sodium 136 L (137-145) mmol/L Potassium 4.1 (3.4-5.1) mmol/L Chloride 100 (98-107) mmol/L Carbon Dioxide 24 (22-32) mmol/L BUN 17 (9-20) mg/dL Creatinine 0.91 (0.66-1.25) mg/dL Estimated GFR > 60.0 (>60) mL/min BUN/Creatinine Ratio 18.7 (6-22) Glucose 116 H (80-110) mg/dL Calcium 11.9 H (8.4-10.2) mg/dL Magnesium 1.9 (1.6-2.3) mg/dL Total Bilirubin 0.5 (0.2-1.3) mg/dL AST 42 (17-59) IU/L ALT 41 (<50) IU/L Alkaline Phosphatase 81 (38-126) U/L Total Creatine Kinase 234 H (55-170) U/L CK-MB (CK-2) 4.02 H (<2.37) ng/mL CK-MB (CK-2) Rel Index 1.7 (1.5-5.0) % Troponin I < 0.012 < 0.012 (0.01-0.034) ng/mL Total Protein 8.0 (6.3-8.2) g/dL Albumin 4.8 (3.5-5.0) g/dL Globulin 3.2 (1.7-4.1) g/dL Albumin/Globulin Ratio 1.5 (1.0-2.8) Lipase 340 H (23-300) U/L Urine Dip Bedside Urine Glucose Negative Bedside Urine Bilirubin - Negative Bedside Urine Ketone +/- 5 Urine Specific [place] 1.015 Bedside Urine Occult Blood - Negative Bedside Urine pH 7.0 Bedside Urine Protein - Negative Bedside Urine Urobilinogen - Negative Bedside Urine Nitrite - Negative Bedside Urine Leukocytes - Negative Esterase ECG Data Attestation: I personally reviewed and interpreted this ECG as follows: Interpretation: Patient's EKG obtained and on July 06 at 13:1 9:12 a.m. reveals a sinus rhythm with a ventricular rate of 63. The patient has a Q-wave in lead III. There is nonspecific slight ST segment depressions in leads III and AVF with T-wave inversion in lead III. There are no other acute diagnostic ST segment changes. The patient has left ventricular hypertrophy by voltage criteria. Discharge Plan Departure Patient Disposition: Home Clinical Impression: Atypical chest pain, H/O hyperparathyroidism, Hypercalcemia Pancreatitis Qualifiers: Chronicity: acute Pancreatitis type: unspecified pancreatitis type Acute pancreatitis complication: unspecified Qualified Code(s): K85.90 - Acute pancreatitis without necrosis or infection, unspecified Discharge Date/Time: 07/07/19 17:56 Instructions: DI for Pancreatitis, DI for Atypical Chest Pain, DI for Hypercalcemia, DI for Hyperparathyroidism Activity Restrictions/Additional Instructions: 1. Follow-up with your primary care physician to be referred to a industrial maintenance repairer for a possible cardiac stress test. 2. Follow-up with your primary care physician for a possible referral to a surgeon to evaluate your parathyroid for hyperparathyroidism. 3. If you develop worsening left upper quadrant abdominal pain left chest pain, chest pain that last continuously longer than 15-20 minutes unrelieved by medications, persistent recurrent nausea and vomiting, shortness of breath or difficulty in breathing, fever, feeling faint you need to return to the emergency department. Otherwise you need to follow-up with your family physician for re-evaluation. 4. Your tests at this time do not reveal that this pain and discomfort is secondary to your heart however since you have not been seen by industrial maintenance repairer or had a stress test since 2011 it is time that she need another 1 just to be sure there is nothing going on with your heart. At this time your chest discomfort is secondary to acute pancreatitis Prescriptions: No Action No Known Home Medications RF: 0 Referrals: Victor Manuel Sam ARNP [Primary Care Provider] -
--- NOTE | 2019-07-07 13:37 | DI.RAD.S_ITS ---
PROCEDURE: XR CHEST 1V INDICATIONS: chest pain TECHNIQUE: One view of the chest was acquired. COMPARISON: [facility], CR, XR CHEST 1V, 01/19/2018, 17:13. [facility], CR, XR CHEST 1V, 12/02/2017, 6:12. FINDINGS: Surgical changes and devices: None. Lungs and pleura: Lungs are clear. No pleural effusions or pneumothorax. Mediastinum: Mediastinal contours appear normal. Heart size is normal. Bones and chest wall: No suspicious bony lesions. Overlying soft tissues appear unremarkable. IMPRESSION: Reduced inspiratory line, source of chest pain not seen. Dictated by: Tristen Aponte M.D. on 07/07/2019 at 14:09 Approved by: Tristen Aponte M.D. on 07/07/2019 at 14:09
[2019-07-07 13:52] LABS: Add Manual Diff / Slide Review NO; Basophils Absolute Auto 100 /uL (0-100); Basophils Percent Auto 0.6 % (0-2); Eosinophils Absolute Auto 0 /uL (0-450); Eosinophils Percent Auto 0.5 % (2-4); Hematocrit 44.3 % (41-53); Hemoglobin 14.9 g/dL (13.5-17.5); Lymphocytes Absolute Auto 1400 /uL (1100-4500); Lymphocytes Percent Auto 15.4 % (25-40); Mean Corpuscular HGB Conc 33.7 % (30-36); Mean Corpuscular Hemoglobin 29.6 PG (26-34); Mean Corpuscular Volume 87.8 fL (80-100); Monocytes Absolute Auto 500 /uL (0-900); Monocytes Percent Auto 5.6 % (3-14); Neutrophils Absolute Auto 7300 /uL (1500-7000); Neutrophils Percent Auto 77.9 % (50-75); Platelet Count 264 X10^3/uL (150-400); Red Blood Cell Count 5.05 X10^6/uL (4.5-5.9); Red Cell Distribution Width 13.1 % (11.6-14.8); White Blood Cell Count 9.4 X10^3/uL (4.5-11.0)
[2019-07-07 13:55] LABS: INR 1.1 (0.9-1.3); Prothrombin Time 12.2 SECONDS (10.1-12.7)
[2019-07-07 13:58] LABS: PTT Partial Thromboplastin Tim 33 SECONDS (26.4-36.2)
[2019-07-07 14:00] LABS: Alanine Aminotransferase 41 IU/L (<50); Albumin 4.8 g/dL (3.5-5.0); Albumin Globulin Ratio 1.5 (1.0-2.8); Alkaline Phosphatase 81 U/L (38-126); Aspartate Aminotransferase 42 IU/L (17-59); BUN Creatinine Ratio 18.7 (6-22); Bilirubin Total 0.5 mg/dL (0.2-1.3); Blood Urea Nitrogen 17 mg/dL (9-20); Calcium 11.9 mg/dL (8.4-10.2); Carbon Dioxide 24 mmol/L (22-32); Chloride 100 mmol/L (98-107); Creatine Kinase 234 U/L (55-170); Estimated Glomerular Filt Rate > 60.0 mL/min (>60); Globulin 3.2 g/dL (1.7-4.1); Glucose 116 mg/dL (80-110); HEMOLYSIS < 15 (0-50); Lipase 340 U/L (23-300); Potassium 4.1 mmol/L (3.4-5.1); Sodium 136 mmol/L (137-145)
[2019-07-07 14:11] LABS: Troponin I < 0.012 ng/mL (0.01-0.034)
[2019-07-07 14:15] LABS: CKMB % Relative Index 1.7 % (1.5-5.0); Creatine Kinase MB 4.02 ng/mL (<2.37)
[2019-07-07 14:17] LABS: D Dimer < 200 ng/mL (<230)
[2019-07-07 14:23] VITALS: BP 143/84; PULSE 88
[2019-07-07] MEDS: NITROGLYCERIN 0.4 MG SL TAB SL ×2 (14:23→14:27)
[2019-07-07 14:30] VITALS: BP 113/78; PULSE 90; RESP 14
--- NOTE | 2019-07-07 14:32 | PC.NURSE ---
nitro not making any difference with two, he thinks is muscular/ no pain but tightness
[2019-07-07 15:30] VITALS: BP 113/78; PULSE 72; RESP 16; O2SAT 99
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
[2019-07-07] MEDS: SODIUM CHLORIDE 0.9% 1,000 ML 1000 ML IV (16:03)
[2019-07-07 16:22] LABS: Magnesium 1.9 mg/dL (1.6-2.3)
[2019-07-07 16:58] VITALS: BP 141/77; PULSE 52; RESP 16; O2SAT 99
[2019-07-07 17:40] LABS: Troponin I < 0.012 ng/mL (0.01-0.034)
== END 2019-07-07 17:56 | disposition home or self-care (01) ==
PROVIDERS: Emergency Provider Emergency Medicine; PCP Registered Nurse
DX: R07.89 Other chest pain (principal); E83.52 Hypercalcemia; K85.90 Acute pancreatitis without necrosis or infection, unspecified; Z86.39 Personal history of other endocrine, nutritional and metabolic disease
CPT/HCPCS: 36415; 71045; 76705; 80053; 81003; 82550; 82553; 83690; 83735; 84484; 85025; 85379; 85610; 85730; 93005; 96360; 99285

== ENCOUNTER → 2019-09-24 14:06 | Outpatient (CLI) | payer OTHER, SELFPAY ==
[2019-09-24 15:58] LABS: Cholesterol 163 mg/dL (140-199); HDL Cholesterol 33 mg/dL (40-60); LDL Cholesterol Calculated 72 mg/dL (<100); Triglycerides 290 mg/dL (35-150)
== END ==
PROVIDERS: PCP Registered Nurse; Referring Provider Internal Medicine Cardiovascular Disease; Visit Provider Internal Medicine Cardiovascular Disease
DX: I10 Essential (primary) hypertension (principal)
CPT/HCPCS: 36415; 80061

== ENCOUNTER → 2019-11-26 07:37 | Outpatient (CLI) | payer OTHER, SELFPAY ==
--- NOTE | 2019-11-26 | DI.ECHO.S_ITS ---
[facility]---------+ [facility] +---------+ : : [address] : : : : [id number] : : : : Phone: [phone] Echocardiogram Report + + :Name: DEX ENCINAS Study Date: 11/26/2019 Height: 70 in : :[facility] Weight: 169 lb : : Gender: Male BSA: 1.9 m2 : :: 1955 Age: 64 yrs BP: 125/85 mmHg: :Reason For Study: TACHYCARDIA : :Ordering Physician: CHUCKIE, : :GURWINDER Performed By: Lillian Bergeron : :Referring: GURWINDER MADDOX : + + Interpretation Summary 1) Normal left ventricular thickness, size, and systolic function (EF 55-60%). 2).There are no obvious focal wall motion abnormalities noted but poor endocardial definition reduces the sensitivity for the detection of such. 3) Normal right ventricular size and function. 4) No significant valvular abnormalities. 5) Compared to the echo done 08/16/2017, no significant change. Procedure: A two-dimensional transthoracic echocardiogram with color flow and Doppler was performed. The study quality was technically adequate. Comparison is made with the echocardiogram of 08/16/2017. The patient was in sinus bradycardia with heart rates between 47-57 bpm during the exam. Left Ventricle: The left ventricle is normal in size and wall thickness. The ejection fraction is estimated to be 55-60%. There are no obvious focal wall motion abnormalities noted but poor endocardial definition reduces the sensitivity for the detection of such. Diastolic parameters suggest probable normal left ventricular diastolic function and normal filling pressures. Right Ventricle: The right ventricle is normal in size and function. Atria: The left atrium is moderately dilated. Right atrial size is normal. There is no Doppler evidence for an interatrial shunt. Mitral Valve: The mitral valve is normal in structure and function. There is mild mitral regurgitation. Aortic Valve: The aortic valve is trileaflet. The aortic valve opens well. There is no aortic valve stenosis. There is trace aortic regurgitation. Tricuspid Valve: The tricuspid valve is normal in structure and function. There is trace tricuspid regurgitation. Pulmonary artery pressures cannot be estimated because of the lack of a measurable TR jet velocity. Pulmonic Valve: The pulmonic valve leaflets are thin and pliable; valve motion is normal. There is no pulmonic valvular regurgitation. Great Vessels: The aortic root is normal size. The ascending aorta is at the upper limits of normal in size. The IVC is of normal diameter and collapses greater than 50% with a sniff. This suggests a low right atrial pressure of 3 mm Hg. Pericardium/ Pleura There is no pericardial effusion. There is no pleural effusion. MMode/2D Measurements & Calculations LVIDd: 4.9 cm LVOT diam: 2.3 cm LVIDs: 3.0 cm Ao root diam: 3.4 cm FS: 37.3 % asc Aorta Diam: 3.5 cm EPSS: 0.81 cm IVSd: 0.86 cm LVPWd: 0.76 cm LV denise. diameter/BSA (cm/m^2): 2.5 LV sys. diameter/BSA (cm/m^2): 1.6 LA A2 area: 24.0 cm2 RA long axis: 5.3 cm LA A4 area: 18.6 cm2 RA area: 17.9 cm2 LA length (vol): 5.2 cm RA vol: 51.7 ml LA vol: 72.2 ml RA : 26.6 ml/m2 LA vol index: 37.2 ml/m2 IVC diam: 1.8 cm RVD1 (basal): 3.9 cm TAPSE: 2.7 cm Doppler Measurements & Calculations Ao V2 max: 129.6 cm/sec LVOT Max Alfredo: 99.2 cm/sec Ao V2 mean: 84.2 cm/sec LV V1 max P.9 mmHg Ao max P.7 mmHg LV V1 VTI: 20.0 cm Ao mean P.3 mmHg PRABHJOT(I,D): 3.4 cm2 Ao V2 VTI: 24.7 cm PRABHJOT(V,D): 3.2 cm2 sev ratio: 0.81 PRABHJOT indexed to BSA (cm^2/m^2): 1.7 MV E max alfredo: 67.3 cm/sec PA V2 max: 67.2 cm/sec MV A max alfredo: 67.3 cm/sec PA V2 mean: 46.2 cm/sec MV E/A: 1.0 PA mean P.0 mmHg Med Peak E' Alfredo: 7.7 cm/sec PA pr(Accel): 17.3 mmHg E/E' med: 8.7 Lat Peak E' Alfredo: 12.0 cm/sec E/E' lat: 5.6 E/e' average: 7.1 MV dec time: 0.15 sec SV(LVOT): 82.7 ml Reading Physician:08:15 PM
== END ==
PROVIDERS: PCP Registered Nurse; Referring Provider Registered Nurse; Visit Provider Internal Medicine Cardiovascular Disease
DX: I35.1 Nonrheumatic aortic (valve) insufficiency (principal); I47.2 Ventricular tachycardia
CPT/HCPCS: 93306

== ENCOUNTER → 2020-07-29 07:57 | Outpatient (CLI) | payer OTHER, SELFPAY ==
--- NOTE | 2020-07-29 | DI.CT.S_ITS ---
PROCEDURE: CT CHEST ABD PEL W CON INDICATIONS: Malignant neoplasm of prostate TECHNIQUE: After the administration of oral and intravenous contrast, axial sections acquired from the supraclavicular neck to the pubic symphysis. Coronal and sagittal reformats were performed. For radiation dose reduction, the following was used: automated exposure control, adjustment of mA and/or kV according to patient size. COMPARISON:[facility], CT, CT KIDNEY URETER BLADDER (KUB), 06/20/2018, 9:00. FINDINGS: Image quality: Excellent. CHEST: Lower Neck: No enlarged lymph nodes. Thyroid: Within normal limits. Axillae: No enlarged lymph nodes. Chest Wall: Unremarkable. Lungs and Airways: No consolidation or suspicious nodules. Pleura: No pneumothorax or pleural effusions. Heart: Heart size is normal. No pericardial effusion. Thoracic Vessels: The aorta and pulmonary arteries demonstrate normal size. Mediastinum and Norma: No enlarged lymph nodes. Esophagus: No wall thickening. Head in hiatal hernia. Miscellaneous: Incidental note is made of canal stenosis at C4-C5, possibly severe. ABDOMEN: Liver: Diffuse hepatic steatosis. No masses. Gallbladder: Unremarkable. Biliary ducts: Unremarkable. Pancreas: Unremarkable. Spleen: Unremarkable. Adrenal Glands: Unremarkable. Kidneys and Ureters: Unremarkable. Stomach and Bowel: At the level of the cecum, there is probable mixing of oral contrast and bowel contents, as the contrast is just reaching the cecum, making it appears though other might be colonic wall thickening. This segment is felt to likely be within normal limits. Stomach, small bowel loops, and colon are unremarkable. Peritoneum: No abnormal intraperitoneal fluid. No free air. No abscess cavity Ventral Wall: No hernia. Abdominal Nodes: No retroperitoneal or mesenteric adenopathy by size criteria. Vessels: Aorta and inferior vena cava are normal in size. PELVIS: Pelvic Organs: Prostate is mildly prominent. Otherwise unremarkable. Bladder: Unremarkable. Pelvic Nodes: No enlarged lymph nodes. Miscellaneous: No inguinal hernias are seen. Bones: Unremarkable. No lytic or blastic lesions. Lumbar degenerative change. IMPRESSION: 1. No evidence of pulmonary metastatic disease. No evidence of acute process in the chest. 2. Incidental note made of canal stenosis at C4-C5, possibly severe. 3. No evidence of metastatic disease in the abdomen and pelvis. Dictated by: Bill Mckeon M.D. on 07/29/2020 at 11:11 Approved by: Bill Mckeon M.D. on 07/29/2020 at 12:18
--- NOTE | 2020-07-29 | DI.NM.S_ITS ---
PROCEDURE: NM BONE SCAN WHOLE BODY RADIOPHARMACEUTICAL: 22.7 mCi Tc-99m MDP IV. INDICATIONS: Malignant neoplasm of prostate TECHNIQUE: Delayed whole-body scintigrams were obtained approximately 3-4 hours after intravenous injection of radiotracer. Anterior and posterior views were acquired from vertex to feet. . COMPARISON: None. FINDINGS: No areas of relative intense radiotracer uptake identified that would be suspicious for osseous metastatic disease. No areas of photopenia identified in the osseous skeleton. Relative subtle radiotracer uptake identified in the cervical spine, shoulders bilaterally, wrists bilaterally, knees bilaterally, ankles bilaterally, mid feet bilaterally, 1st MTP joints bilaterally and in the 1st MCP joints of the hands bilaterally compatible with osteoarthritis. No abnormal soft tissue uptake. Activity in the kidneys is normal and symmetric. IMPRESSION: No scintigraphic evidence of osseous metastatic disease. Dictated by: Delia Bush MD, PhD on 07/29/2020 at 16:25 Approved by: Delia Bush MD, PhD on 07/29/2020 at 16:28
== END ==
PROVIDERS: PCP Registered Nurse; Referring Provider Urology; Visit Provider Urology
DX: C61 Malignant neoplasm of prostate (principal)
CPT/HCPCS: 71260; 74177; 78306; A9503; Q9967

== ENCOUNTER 2020-11-26 08:37 | Inpatient (IN) | payer OTHER, MEDICARE, SELFPAY ==
[2020-11-26] VITALS (21 sets, daily range): BP systolic 92–144; BP diastolic 57–77; PULSE 58–94; RESP 12–20; TEMP 36.3–37.6; O2SAT 95–99; BMI 25.9
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
[2020-11-26] MEDS: MORPHINE 2 MG/ML INJ (08:48)
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
[2020-11-26 09:09] LABS: Add Manual Diff / Slide Review NO; Basophils Absolute Auto 100 /uL (0-100); Basophils Percent Auto 1.1 % (0-2); Eosinophils Absolute Auto 200 /uL (0-450); Eosinophils Percent Auto 3.7 % (2-4); Hematocrit 44.7 % (41-53); Hemoglobin 14.6 g/dL (13.5-17.5); Lymphocytes Absolute Auto 1700 /uL (1100-4500); Lymphocytes Percent Auto 24.9 % (25-40); Mean Corpuscular HGB Conc 32.7 % (30-36); Mean Corpuscular Hemoglobin 29.3 PG (26-34); Mean Corpuscular Volume 89.5 fL (80-100); Monocytes Absolute Auto 600 /uL (0-900); Monocytes Percent Auto 9.2 % (3-14); Neutrophils Absolute Auto 4100 /uL (1500-7000); Neutrophils Percent Auto 61.1 % (50-75); Platelet Count 250 X10^3/uL (150-400); Red Blood Cell Count 4.99 X10^6/uL (4.5-5.9); Red Cell Distribution Width 13.3 % (11.6-14.8); White Blood Cell Count 6.7 X10^3/uL (4.5-11.0)
[2020-11-26 09:09] LABS: COVID19 -Nasal RAPID Negative (Negative)
[2020-11-26 09:12] LABS: PTT Partial Thromboplastin Tim 31 SECONDS (26.4-36.2)
[2020-11-26 09:14] LABS: Alanine Aminotransferase 35 IU/L (<50); Albumin 4.5 g/dL (3.5-5.0); Albumin Globulin Ratio 1.6 (1.0-2.8); Alkaline Phosphatase 47 U/L (38-126); Aspartate Aminotransferase 37 IU/L (17-59); BUN Creatinine Ratio 22.9 (6-22); Bilirubin Total 0.5 mg/dL (0.2-1.3); Blood Urea Nitrogen 19 mg/dL (9-20); Calcium 9.4 mg/dL (8.4-10.2); Carbon Dioxide 27 mmol/L (22-32); Chloride 102 mmol/L (98-107); Estimated Glomerular Filt Rate > 60.0 mL/min (>60); Ethanol (ETOH) < 10 mg/dL; Globulin 2.9 g/dL (1.7-4.1); Glucose 155 mg/dL (80-110); HEMOLYSIS 30 (0-50); Lipase 1539 U/L (23-300); Potassium 4.1 mmol/L (3.4-5.1); Sodium 137 mmol/L (137-145); Total Protein 7.4 g/dL (6.3-8.2)
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
[2020-11-26] MEDS: CEFAZOLIN 1 GM VIAL IV (09:21)
[2020-11-26] MEDS: TET,DIPH,PERTUSS(ACELL),VAC/PF 0.5 ML SYRINGE IM (09:21)
[2020-11-26 09:24] LABS: Appearance Urine UA CLEAR; Bilirubin Urine UA NEGATIVE (NEGATIVE); Color Urine UA YELLOW; Glucose Urine UA NEGATIVE (Negative); Ketones Urine UA NEGATIVE (NEGATIVE); Leukocyte Esterase Urine UA NEGATIVE (NEGATIVE); Nitrite Urine UA NEGATIVE (Negative); Occult Blood Urine UA TRACE-INTACT (Negative); Protein Urine UA TRACE (Negative); Urobilinogen Urine UA 0.2 E.U./dL (0.2)
[2020-11-26 09:31] LABS: UR Morphine/Opiate cutoff 300 Positive (Negative); Ur Creatinine Normal (Normal); Ur Specific Gravity Normal (Normal); Urine Amphetamines Negative (Negative); Urine Barbiturates Negative (Negative); Urine Benzodiazepines Negative (Negative); Urine Cocaine Negative (Negative); Urine MDMA Negative (Negative); Urine Methadone Negative (Negative); Urine Methamphetamines Negative (Negative); Urine Oxycodone Negative (Negative); Urine Phencyclidine Negative (Negative); Urine Tetrahydrocannabinol Negative (Negative); Urine Tricyclic Antidepressant Negative (Negative); Urine pH Normal (Normal)
[2020-11-26 09:33] LABS: Bacteria Urine None Seen; Culture Indicated Urine Cult Not Indicated; RBC Urine None Seen (0-5/HPF); Urine Comments Microscopic Normal; WBC Urine None Seen (0-5/HPF)
--- NOTE | 2020-11-26 09:41 | PC.NURSE ---
keys given to johnathan spears, patient requested and gave permission, all other belongings with patient to or
[2020-11-26] MEDS: LACTATED RINGERS 1,000 ML 42 ML IV ×2 (09:45→10:45)
--- NOTE | 2020-11-26 09:57 | PC.NURSE ---
See paper chart.
[2020-11-26] MEDS: PIPERACILLIN/TAZO 3.375 GM in SODIUM CHLORIDE 0.9% 100 ML 25 ML IV (10:07)
--- NOTE | 2020-11-26 10:21 | SUR.OPER ---
Supine on padded OR bed, head on gel donut and blankets, arms secured on padded arm boards at <90 degrees abduction, legs uncrossed, safety belt at thigh, tape over blanket over lower legs. [place] bump under left hip. Gel pad between posterior thigh and urinary catheter tubing.
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
[2020-11-26] MEDS: BUPIVACAINE 0.25% (PF) VIAL 80 ML INJ (10:44)
[2020-11-26 11:05] LABS: Reflexed Lactate in 2 Hours Y
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
[2020-11-26] MEDS: ONDANSETRON 4 MG/2 ML INJ IV (11:37)
[2020-11-26] MEDS: HYDROMORPHONE 2 MG INJ IV (11:37)
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
[2020-11-26] MEDS: SODIUM CHLORIDE 0.9% 1,000 ML 125 ML IV ×2 (13:40→21:35)
[2020-11-26] MEDS: ACETAMINOPHEN 325 MG TABLET 650 MG PO ×3 (13:40→23:38)
[2020-11-26] MEDS: HYDROMORPHONE 1 MG INJ IV ×2 (15:34→21:28)
[2020-11-26] MEDS: KETOROLAC 30 MG/ML VIAL IV ×2 (15:35→21:28)
[2020-11-26] MEDS: CEFAZOLIN 1 GM VIAL 2 GM IV (17:10)
[2020-11-26] MEDS: OXYCODONE IR 5 MG TABLET PO (17:26)
[2020-11-26] MEDS: DOCUSATE 100 MG CAPSULE PO (21:28)
[2020-11-27] VITALS (8 sets, daily range): BP systolic 108–128; BP diastolic 64–71; PULSE 71–89; RESP 16–20; TEMP 36.8–37.3; O2SAT 95–98
[2020-11-27] MEDS: CEFAZOLIN 1 GM VIAL 2 GM IV ×3 (01:02→16:00)
--- NOTE | 2020-11-27 02:13 | PC.NURSE ---
Addendum entered by Nereida Bueno R.N. 11/27/20 04:17: Complains of heartburn unrelieved by drinking milk. Dr Burns informed and order received for Maalox. Original Note: Patient alert and oriented. Breath sounds CTA with RA sat of 97%. HRR. BP low at 92/58 with previous readings noted to be in 80's systolic. Patient is asymptomatic and states he typically runs SBP in low 100's. Denied nausea. BT present but not yet passing flatus. Midline dressing is CDI. Left flank dressing with shadow drainage noted and outlined. States abdominal pain is minimal at 3/10 and was medicated with scheduled Tylenol and has ice pack to abdomen. Indwelling catheter is patent; urine is clear yola. Gait not assessed at this time. Is wearing bilateral calf SCD's. Fall risk score is moderate and bed alarm is activated.
[2020-11-27] MEDS: MAG HYDROX/ALUM/SIMETH 30 ML UDC PO ×2 (04:26→08:12)
[2020-11-27] MEDS: ACETAMINOPHEN 325 MG TABLET 650 MG PO ×3 (05:31→19:40)
[2020-11-27] MEDS: SODIUM CHLORIDE 0.9% 1,000 ML 125 ML IV (05:32)
[2020-11-27 05:35] LABS: Add Manual Diff / Slide Review NO; Basophils Absolute Auto 0 /uL (0-100); Basophils Percent Auto 0.2 % (0-2); Eosinophils Absolute Auto 0 /uL (0-450); Hematocrit 32.9 % (41-53); Hemoglobin 10.9 g/dL (13.5-17.5); Lymphocytes Absolute Auto 500 /uL (1100-4500); Lymphocytes Percent Auto 4.3 % (25-40); Mean Corpuscular HGB Conc 33.1 % (30-36); Mean Corpuscular Hemoglobin 29.7 PG (26-34); Mean Corpuscular Volume 89.6 fL (80-100); Monocytes Absolute Auto 900 /uL (0-900); Monocytes Percent Auto 7.3 % (3-14); Neutrophils Absolute Auto 10300 /uL (1500-7000); Neutrophils Percent Auto 88.2 % (50-75); Platelet Count 203 X10^3/uL (150-400); Red Blood Cell Count 3.67 X10^6/uL (4.5-5.9); Red Cell Distribution Width 13.3 % (11.6-14.8); White Blood Cell Count 11.7 X10^3/uL (4.5-11.0)
[2020-11-27] MEDS: DOCUSATE 100 MG CAPSULE PO ×2 (08:12→19:40)
[2020-11-27] MEDS: ENOXAPARIN 40 MG/0.4 ML SYRINGE SUBCUT (08:16)
--- NOTE | 2020-11-27 09:58 | PC.NURSE ---
Day shift: Dr Burns ordered IV fluids to be d/c'd and to d/c Aguilera when Pt is able to ambulate well. Pt to work with PT soon. Pt sitting in chair and tolerating that well. Did not want any pain medication. Will be given Tylenol per APR at approx 1100. Call light in reach. Dr Farrar said he would see the Pt this afternoon. Will continue w/ plan of care.
[2020-11-27] MEDS: OXYCODONE IR 5 MG TABLET PO (10:43)
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
--- NOTE | 2020-11-27 10:50 | PC.NURSE ---
Day shift: Pt has Hx of prostate removal and is incontinent. Pt stated that he would like to leave the Aguilera in place until he is closer to leaving. Pain increased when he worked w/ PT. Pt is to attempt stairs this afternoon w/ PT. Per PT and Pt it sounds like Pt will stay here another night. Medicated for pain per APR.
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
[2020-11-27] MEDS: KETOROLAC 30 MG/ML VIAL IV (15:57)
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
[2020-11-28] VITALS (8 sets, daily range): BP systolic 112–140; BP diastolic 66–76; PULSE 72–80; RESP 16–18; TEMP 36.9–37.4; O2SAT 95–97
[2020-11-28] MEDS: CEFAZOLIN 1 GM VIAL 2 GM IV ×2 (00:15→08:52)
[2020-11-28] MEDS: ACETAMINOPHEN 325 MG TABLET 650 MG PO ×3 (00:15→10:58)
[2020-11-28 05:43] LABS: Add Manual Diff / Slide Review NO; Basophils Absolute Auto 0 /uL (0-100); Basophils Percent Auto 0.8 % (0-2); Eosinophils Absolute Auto 100 /uL (0-450); Eosinophils Percent Auto 1.8 % (2-4); Hematocrit 30.9 % (41-53); Hemoglobin 10.4 g/dL (13.5-17.5); Lymphocytes Absolute Auto 700 /uL (1100-4500); Lymphocytes Percent Auto 10.8 % (25-40); Mean Corpuscular HGB Conc 33.6 % (30-36); Mean Corpuscular Hemoglobin 29.8 PG (26-34); Mean Corpuscular Volume 88.7 fL (80-100); Monocytes Absolute Auto 700 /uL (0-900); Monocytes Percent Auto 12.3 % (3-14); Neutrophils Absolute Auto 4500 /uL (1500-7000); Neutrophils Percent Auto 74.3 % (50-75); Platelet Count 171 X10^3/uL (150-400); Red Blood Cell Count 3.48 X10^6/uL (4.5-5.9)
[2020-11-28] MEDS: ENOXAPARIN 40 MG/0.4 ML SYRINGE SUBCUT (08:52)
[2020-11-28] MEDS: DOCUSATE 100 MG CAPSULE PO (08:52)
[2020-11-28] MEDS: OXYCODONE IR 5 MG TABLET PO (08:52)
--- NOTE | 2020-11-28 09:22 | PC.NURSE ---
Day shift: Per Dr Burns Pt is cleared to discharge today. Per Dr Burns d/c Aguilera prior to going home. No changes in d/c plan.
--- NOTE | 2020-11-28 10:19 | PT.IPTN ---
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) Surgery Performed Operation Date: 11/26/20 09:45 Actual Procedures p Exploratory Laparotomy GEN Nate Burns MD Physical Therapy Treatment Note M2 PT-IP Current Condition Start: 11/27/20 10:40 Freq: NEEDED Status: Active Protocol: Document 11/27/20 10:41 [facility] (Rec: 11/27/20 11:01 [facility] [id number]) Physical Therapy Current Condition Current Condition Evaluation Date 11/27/20 Weight Bearing Status Weight Bearing Status Full Weight Bearing M3 PT-IP Subjective Start: 11/27/20 10:40 Freq: NEEDED Status: Active Protocol: Document 11/28/20 09:54 [facility] (Rec: 11/28/20 10:19 [facility] [id number]) Subjective Physical Therapy Visit Type Type Initial Evaluation Visit Start Time 09:32 Visit Stop Time 09:53 Total Visit Minutes 21 Physical Therapy Visit Comments Patient Comments Pt in chair willing to ambulate with PT. States he would like to try stairs again . States he is having less pain and just received pain meds. Patient Goals return to work, climb up and down stairs for work Therapy Pain Assessment Pain When Pain Assessed At Rest Pain Present Pain Present Pain Reported M4 PT-IP Mobility and Gait Start: 11/27/20 10:40 Freq: NEEDED Status: Active Protocol: Document 11/28/20 09:54 [facility] (Rec: 11/28/20 10:19 [facility] [id number]) PT-Transfer Assessment Sit to and From Stand Sit to and from Stand Contact Guard Assistance Equipment Transfer Assistive Device Gait Belt,Front Wheeled Walker Transfers Transfer Destination Chair Transfer Technique ambulated Transfer Ability Level of Assist Standby Assistance,Use of Upper Extremities Comments Mobility Comments Pt attempted standing when he began bleeding from IV site. IV had just been removed by nursing. Pt sat back in chair as bandaging was replaced and floor cleaned. Pt then stood from pushing off chair CGA. Stood for 1 minute prior to initiating ambulation to check for bleeding from IV site. Pt ambulated to stairs and back to room slowly with antalgic gait. Able to go up/down stairs x2 using left sided rail. Pt ambulated back to room and sat in chair SBA. Gait Assessment Gait Gait Assistance Required: Contact Guard Assist Distance (Feet) 210 Able to Maintain Weight Bearing Status Yes During Gait Assistive Devices Assistive Device Gait Belt,Front Wheeled Walker Gait Deviations General Gait Pattern Antalgic,Decreased Stride Length Factors Limiting Gait Function Factors Limiting Gait Function Pain Comments Gait Comments see mobility section Stair Climbing Assessment Evaluation Level of Assist On Stairs Standby Assistance,Contact Guard Assistance Devices Stair Climbing Assistive Devices Left Railing Technique/Endurance Stair Climbing Direction Ascend and Descend Stair Climbing Technique Step to Step Number of Steps Climbed 3 Stair Climbing Set # Repetitions (reps) 2 Comments Stair Climbing Comments Pt moving slowly both directions. Able to safely ascend and descend using step- to pattern safely. Pt states his friend will be available to assist him into the house. M5 PT-IP Objective Assessments Start: 11/27/20 10:40 Freq: NEEDED Status: Active Protocol: Document 11/27/20 10:41 [facility] (Rec: 11/27/20 11:01 [facility] [id number]) Orientation Orientation/Cognition Level of Alertness Alert Language Function Ability No Deficits Noted Memory Description No Deficits Noted Gross Range of Motion Upper Extremity ROM Assessment Within Functional Limits Lower Extremity ROM Assessment Within Functional Limits Strength Upper Extremity Strength Assessment Within Functional Limits Lower Extremity Strength Assessment Within Functional Limits Comments Strength Comments pt able to place weight through his left LE for gait, pain was his limiting factor for gait Coordination Assessment Gross Coordination Gross Coordination WNL Sensation Assessment Sensation Gross Sensation WNL Muscle Tone Muscle Tone WNL Yes M6 PT-IP Treatment Start: 11/27/20 10:40 Freq: NEEDED Status: Active Protocol: Document 11/28/20 09:54 [facility] (Rec: 11/28/20 10:19 [facility] [id number]) Physical Therapy Treatment Education Education Provided Safety M7 PT-IP Assessment and Plan Start: 11/27/20 10:40 Freq: NEEDED Status: Active Protocol: Document 11/28/20 09:54 [facility] (Rec: 11/28/20 10:19 [facility] [id number]) PT Summary Assessment and Plan Potential Rehabilitation Potential Excellent Status of Condition at Evaluation Stable Summary Impairments Pain,Transfers,Gait,Activity Tolerance Assessment Summary Pt sitting in chair wanting to ambulate and trial stair one more time before DC. Pt reports much less pain with ambulation and stair climbing today. On return to room pt took one standing rest break for ~20 seconds but otherwise able to continuously ambulate entire distance. Goals Bed Mobility Goal Independent Transfer Goal Independent Gait Goal Independent Gait Distance 250 feet Other Goals pt is able to ambulate up and down 2 sets of stairs Days to Meet Goals 3 Frequency of Treatment Frequency Of Treatment Twice a Day Treatment Plan Physical Therapy Treatment Plan Bed Mobility Training,Transfer Training,Gait Training,Hot or Cold Pack Other Recommendations and Next Treatment gait with fww, stairs Focus Recommendations To Nursing Amount of Assist Needed Standby Assistance Discharge Recommendations PT Discharge Recommendations Home Transportation Needs at Discharge Private Vehicle
--- NOTE | 2020-11-28 10:43 | PC.NURSE ---
Day shift: Paperwork signed and all questions answered. Went over wound care instructions. Pt given wound dressings and tape to change dressings if needed. Pt encouraged to call Dr Burnham's office and make f/u appointment. scripts sent electronic to Pt's pharmacy. Pt has all personal belongings. Pt's [id number] will be picking him up today. Pt will be taken down to that car in [place]. Will write update note after Pt leaves AC unit.
--- NOTE | 2020-11-28 11:49 | CM.DPC ---
DCP: Patient is to be going home today. He does not have any current needs from care management. P: Patient is to go home today. Federica Cade RN/Chemical Waste Management Technician
--- NOTE | 2020-11-28 12:01 | PC.NURSE ---
Day shift: Aguilera removed at approx [address] (Per Dr Burns). Brief in place as Pt is incontinent of urine due to prostate CA. Pt tolerated removal well.
--- NOTE | 2020-11-28 12:49 | CM.MNRNOTE ---
Day shift: Pt left will all personal items. He was taken to car by this typewriter assembler in . His friend is driving him home. Left unit at approx 1245.
== END 2020-11-28 12:51 | disposition home or self-care (01) | DRG 580 ==
LOC: ED 08:50 → AC 08:52
PROVIDERS: Admitting Provider Surgery; Emergency Provider Emergency Medicine; PCP Registered Nurse; Referring Provider Emergency Medicine; Visit Provider Surgery
PROC: 0WJF0ZZ Inspection of Abdominal Wall, Open Approach (ICD-10-PCS; CPT 49000; principal; 2020-11-26 09:45)
DX: S31.104A Unspecified open wound of abdominal wall, left lower quadrant without penetration into peritoneal cavity, initial encounter (principal); S32.302A Unspecified fracture of left ilium, initial encounter for closed fracture; I10 Essential (primary) hypertension; W34.00XA Accidental discharge from unspecified firearms or gun, initial encounter; Z90.79 Acquired absence of other genital organ(s); Z87.891 Personal history of nicotine dependence; Z23 Encounter for immunization
CPT/HCPCS: 36415; 49000; 71045; 71260; 72170; 74177; 80053; 80305; 80320; 81001; 83605; 83690; 85025; 85610; 85730; 86850; 86900; 86901; 87635; 90471; 93005; 94760; 96374; 97116; 97161; 97530; 99283; 99284; C9803; 90715; J0330; J0690; J1100; J1170; J1650; J1885; J2270; J2405; J2543; J2704; Q9967

== ENCOUNTER → 2021-05-22 08:40 | Outpatient (CLI) | payer OTHER, SELFPAY ==
[2020-11-26 14:36] VITALS: BMI 25.9
--- NOTE | 2021-05-22 | DI.ECHO.S_ITS ---
[facility] +---------+ Hospital +---------+ : : [address] : : : : [id number] : : : : Phone: [phone]+ Echocardiogram Report + + :Name: DEX ENCINAS Study Date: 05/22/2021 Height: 70 in : :[facility] ReadingLocation: Weight: 170 lb : : Gender: Male BSA: 1.9 m2 : :: 1955 Age: 65 yrs BP: 154/98 mmHg: :Reason For Study: CHEST PAIN : :Ordering Physician: CHUCKIE, : :GURWINDER Performed By: Lillian Bergeron : :Referring: GURWINDER MADDOX : + + Interpretation Summary 1) Normal left ventricular thickness and size with low normal systolic function (EF 50-55%). 2) Normal right ventricular size and function. 3) No significant valvular abnormalities. 4) Hypertension is present on this study (BP 154/98mmHg). 5) Compared to the Echo done 11/26/2019, LV is slightly less dynamic on this study (EF dropped from 55-60% to 50-55% on this study) Procedure: A two-dimensional transthoracic echocardiogram with color flow and Doppler was performed. The study quality was technically adequate. Comparison is made with the echocardiogram of 11/26/2019. The patient was in sinus rhythm with heart rates between 59-65 bpm during the exam. Left Ventricle: The left ventricle is normal in size and wall thickness. The ejection fraction is estimated to be 50-55%. There are no focal wall motion abnormalities. Right Ventricle: The right ventricle is normal in size and function. Atria: The left atrium is borderline dilated. The right atrium is normal in size. There is no Doppler evidence for an interatrial shunt. Mitral Valve: The mitral valve leaflets appear mildly thickened, but open well. There is mild mitral regurgitation. Aortic Valve: The aortic valve is trileaflet. The aortic valve opens well. There is no aortic valve stenosis. There is trace aortic regurgitation. Tricuspid Valve: The tricuspid valve is normal in structure and function. There is trace tricuspid regurgitation. Pulmonic Valve: The pulmonic valve leaflets are thin and pliable; valve motion is normal. There is trace pulmonic regurgitation. Great Vessels: The aortic root is normal size. The dimensions of the ascending aorta are normal. The IVC is of normal diameter and collapses greater than 50% with a sniff. This suggests a low right atrial pressure of 3 mm Hg. Pericardium/ Pleura There is no pericardial effusion. There is no pleural effusion. MMode/2D Measurements & Calculations LVIDd: 4.6 cm LVOT diam: 2.0 cm LVIDs: 3.0 cm Ao root diam: 3.6 cm FS: 33.8 % asc Aorta Diam: 3.3 cm IVSd: 0.90 cm Ao Arch Diam (Prox Trans): 2.7 cm LVPWd: 0.85 cm LV denise. diameter/BSA (cm/m^2): 2.4 LV sys. diameter/BSA (cm/m^2): 1.6 LA A2 area: 21.2 cm2 RA long axis: 5.6 cm LA A4 area: 19.4 cm2 RA area: 15.8 cm2 LA length (vol): 5.3 cm RA vol: 37.6 ml LA vol: 65.5 ml RA : 19.3 ml/m2 LA vol index: 33.6 ml/m2 IVC diam: 1.6 cm RVD1 (basal): 3.5 cm TAPSE: 2.2 cm Doppler Measurements & Calculations Ao V2 max: 144.5 cm/sec LVOT Max Alfredo: 86.5 cm/sec Ao V2 mean: 97.2 cm/sec LV V1 max P.0 mmHg Ao max P.4 mmHg LV V1 VTI: 19.1 cm Ao mean P.3 mmHg PRABHJOT(I,D): 2.2 cm2 Ao V2 VTI: 27.8 cm PRABHJOT(V,D): 1.9 cm2 sev ratio: 0.69 PRABHJOT indexed to BSA (cm^2/m^2): 1.1 MV E max alfredo: 64.8 cm/sec PA V2 max: 104.9 cm/sec MV A max alfredo: 85.4 cm/sec PA V2 mean: 74.0 cm/sec MV E/A: 0.76 PA mean P.5 mmHg Med Peak E' Alfredo: 6.2 cm/sec E/E' med: 10.5 Lat Peak E' Alfredo: 8.9 cm/sec E/E' lat: 7.2 E/e' average: 8.9 MV dec time: 0.17 sec SV(LVOT): 59.7 ml Reading Physician:11:46 AM
== END ==
PROVIDERS: PCP Registered Nurse; Referring Provider Internal Medicine Cardiovascular Disease; Visit Provider Internal Medicine Cardiovascular Disease
DX: R07.9 Chest pain, unspecified (principal); I34.0 Nonrheumatic mitral (valve) insufficiency
CPT/HCPCS: 93306

== ENCOUNTER → 2021-05-26 14:54 | Outpatient (CLI) | payer OTHER, SELFPAY ==
[2020-11-26 14:36] VITALS: BMI 25.9
--- NOTE | 2021-05-26 15:58 | PM.TREADMILL ---
Cardiac Stress Test Report Referral & Results Indication: CHEST PAIN Rest ECG: SINUS RHYTHM Procedure Note: NON NUCLEAR TREADMILL STRESS TEST Impression: STANDARD FLORESITA PROTOCOL; MAX EFFORT ETT; BERTHA -19 GOOD EXER CAPACITY; 10.1 METS; EXER TIME 09.01; MAX HR 161 (105% OF MAX HR ACHIEVED); HAD APPROPRIATE HEMODYNAMIC RESPONSE; BASELINE ECG SINUS RHYTHM; NO SIGNIFICANT ST CHANGES NOTED DURING OR AFTER ECG; OCCASSIONAL PVCS; DENIED CHEST DISCOMFORT; HAD MINIMAL SOB; REPAIR TECHNICIAN TO REVIEW; MADAN SHAFER Please note: Actual ECG tracings can be found in the PACS system.
--- NOTE | 2021-05-26 18:46 | DI.NM.S_ITS ---
DATE OF SERVICE: 05/26/2021 PROCEDURE PERFORMED: Exercise stress test. INDICATION: Chest pain. CARDIAC STRESS: The patient underwent exercise stress test under the supervision of an attending staff. The patient walked on Adonis protocol for 9 minutes and 01 seconds, achieved maximum heart rate of 161, which was 105 percent of target heart rate. Baseline blood pressure 122/82 mmHg. Maximum blood pressure 170/100 mmHg, suggestive of hypertensive response. The patient achieved 10.1 METs of workload. Functional aerobic impairment -18 percent. Baseline rhythm was sinus with some T-wave inversion in inferolateral leads. During stress, no convincing ischemic changes seen. The patient has occasional PVCs and one ventricular couplet without any ventricular tachycardia. In the recovery, the patient has intermittent PACs without any AFib. No chest discomfort. Had minimal shortness of breath. CONCLUSION: 1. Exercise stress test is negative for inducible ischemia. 2. Mildly hypertensive blood pressure response. 3. Good exercise capacity. Functional aerobic impairment -18 percent. 4. No anginal symptoms. 5. Occasional premature ventricular contractions during stress, as well as intermittent premature atrial contractions in recovery, without any obvious sustained ventricular tachycardia or atrial fibrillation. Overall low-risk exercise stress test. DomenicoStefan - SALOMON/wilfredo/miryam doc#: [id number]/job#: [id number] dd: 05/26/2021 17:35:00 dt: 05/26/2021 18:22:00 DICTATING /COPIES TO: Mary Kay Johnson MD COPIES MNE: OZZY;
== END ==
PROVIDERS: PCP Registered Nurse; Referring Provider Internal Medicine Cardiovascular Disease; Visit Provider Internal Medicine Cardiovascular Disease
DX: R07.9 Chest pain, unspecified (principal)
CPT/HCPCS: 93017

== ENCOUNTER 2021-05-28 09:48 | Emergency (ER) | payer OTHER, SELFPAY ==
[2020-11-26 14:36] VITALS: BMI 25.9
[2021-05-28] VITALS (7 sets, daily range): BP systolic 123–155; BP diastolic 72–84; PULSE 61–70; RESP 14–24; TEMP 36.6; O2SAT 95–98; BMI 25.1
--- NOTE | 2021-05-28 10:13 | DI.RAD.S_ITS ---
PROCEDURE: XR CHEST 1V INDICATIONS: chest pain TECHNIQUE: One view of the chest was acquired. COMPARISON: [facility], CR, XR CHEST 1V, 11/26/2020, 8:28. FINDINGS: Surgical changes and devices: None. Lungs and pleura: Lungs are clear. No pleural effusions or pneumothorax. Mediastinum: Mediastinal contours appear normal. Heart size is normal. Bones and chest wall: No suspicious bony lesions. Overlying soft tissues appear unremarkable. IMPRESSION: No acute cardiopulmonary process demonstrated radiographically. Dictated by: Vicente Casey M.D. on 05/28/2021 at 10:41 Approved by: Vicente Casey M.D. on 05/28/2021 at 10:41
[2021-05-28 10:21] LABS: Add Manual Diff / Slide Review NO; Basophils Absolute Auto 100 /uL (0-100); Basophils Percent Auto 0.6 % (0-2); Eosinophils Absolute Auto 100 /uL (0-450); Eosinophils Percent Auto 0.7 % (2-4); Hematocrit 43.1 % (41-53); Hemoglobin 14.7 g/dL (13.5-17.5); Lymphocytes Absolute Auto 1000 /uL (1100-4500); Lymphocytes Percent Auto 12.8 % (25-40); Mean Corpuscular HGB Conc 34.1 % (30-36); Mean Corpuscular Hemoglobin 29.7 PG (26-34); Monocytes Absolute Auto 600 /uL (0-900); Monocytes Percent Auto 7.3 % (3-14); Neutrophils Absolute Auto 6400 /uL (1500-7000); Neutrophils Percent Auto 78.6 % (50-75); Platelet Count 267 X10^3/uL (150-400); Red Blood Cell Count 4.95 X10^6/uL (4.5-5.9); Red Cell Distribution Width 14.2 % (11.6-14.8); White Blood Cell Count 8.1 X10^3/uL (4.5-11.0)
[2021-05-28 10:30] LABS: Alanine Aminotransferase 38 IU/L (<50); Albumin 4.8 g/dL (3.5-5.0); Albumin Globulin Ratio 1.5 (1.0-2.8); Alkaline Phosphatase 51 U/L (38-126); Aspartate Aminotransferase 39 IU/L (17-59); BUN Creatinine Ratio 19.8 (6-22); Bilirubin Total 0.9 mg/dL (0.2-1.3); Blood Urea Nitrogen 19 mg/dL (9-20); Calcium 9.3 mg/dL (8.4-10.2); Carbon Dioxide 27 mmol/L (22-32); Chloride 101 mmol/L (98-107); Creatine Kinase 268 U/L (55-170); Estimated Glomerular Filt Rate > 60.0 mL/min (>60); Globulin 3.3 g/dL (1.7-4.1); Glucose 132 mg/dL (80-110); HEMOLYSIS < 15 (0-50); Magnesium 1.9 mg/dL (1.6-2.3); Potassium 4.3 mmol/L (3.4-5.1); Sodium 135 mmol/L (137-145); Total Protein 8.1 g/dL (6.3-8.2)
[2021-05-28 10:37] LABS: Lipase 3369 U/L (23-300)
[2021-05-28 10:41] LABS: Troponin I < 0.012 ng/mL (0.01-0.034)
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
[2021-05-28 10:45] LABS: CKMB % Relative Index 1.3 % (1.5-5.0); Creatine Kinase MB 3.61 ng/mL (<2.37)
--- NOTE | 2021-05-28 11:01 | DI.US.S_ITS ---
PROCEDURE: US ABDOMEN LIMITED INDICATIONS: slowly increasing lipase over 1 yr. TECHNIQUE: Real-time focused scanning was performed of the abdomen, with image documentation. COMPARISON: [facility], , US ABDOMEN LIMITED, 07/07/2019, 16:03. FINDINGS: Liver: Hepatic parenchyma shows diffuse increased echogenicity consistent with fatty infiltration. Gallbladder: Sonolucent without cholelithiasis. No gallbladder wall thickening. No pericholecystic fluid or Sharif's sign. Common Bile Duct: 4.8 mm. Pancreas: Unremarkable as visualized IMPRESSION: Hepatic fatty infiltration Approved by: Ken Munguia M.D. on 05/28/2021 at 11:25
[2021-05-28 11:13] LABS: NT-proBNP (BNP-Adult 18+) 20 pg/mL (<125)
[2021-05-28 11:41] LABS: Phosphorous 3.3 mg/dL (2.3-3.7)
[2021-05-28 11:50] LABS: D Dimer < 200 ng/mL (<230)
[2021-05-30 06:15] LABS: Parathyroid Hormone Int 20 pg/mL (15-65)
== END 2021-05-28 13:39 | disposition home or self-care (01) ==
PROVIDERS: Emergency Provider Emergency Medicine; PCP Registered Nurse
DX: R42 Dizziness and giddiness (principal); R00.2 Palpitations; R74.8 Abnormal levels of other serum enzymes
CPT/HCPCS: 36415; 71045; 76705; 80053; 82550; 82553; 83690; 83735; 83880; 83970; 84100; 84484; 85025; 85379; 93005; 93010; 99283; 99284

== ENCOUNTER → 2022-08-17 12:06 | Outpatient (CLI) | payer OTHER, SELFPAY ==
[2020-11-26 14:36] VITALS: BMI 25.9
--- NOTE | 2022-08-17 | DI.US.S_ITS ---
PROCEDURE: US ABDOMEN INDICATIONS: HX LEFT SIDED CALCULUS/INGUINAL HERNIA TECHNIQUE: Real-time scanning was performed of the area of clinical concern, with image documentation. Color Doppler was also utilized. COMPARISON: [facility], US, US ABDOMEN LIMITED, 05/28/2021, 11:28. [facility], CT, CT CHEST ABD PEL W CON, 11/26/2020, 8:33. FINDINGS: Scanning is performed at the area of clinical concern. No findings a hernia defect can be seen. Within this region, there is a palpable lymph node seen just superior to the inguinal canal that measures 14 x 6 x 13 mm. IMPRESSION: No findings of hernia can be seen. Palpable lymph node seen at the area of interest, which is borderline prominent in size. Dictated by: Daniel Vasquez M.D. on 08/17/2022 at 13:58 Approved by: Daniel Vasquez M.D. on 08/17/2022 at 14:00
--- NOTE | 2022-08-17 | DI.US.S_ITS ---
PROCEDURE: US RENAL COMPLETE INDICATIONS: HX LEFT SIDED CALCULUS/INGUINAL HERNIA TECHNIQUE: Real-time scanning was performed of the kidneys and bladder, with image documentation. COMPARISON: [facility], CT, CT CHEST ABD PEL W CON, 11/26/2020, 8:33. [facility], US, US ABDOMEN COMPLETE, 08/17/2022, 12:38. [facility], US, US ABDOMEN LIMITED, 05/28/2021, 11:28. [facility], US, US RENAL COMPLETE, 03/19/2019, 7:09. FINDINGS: Kidneys: Kidneys are normal in size. Right kidney measures 13.4 cm long; left kidney measures 13.5 cm long. Right renal cortical thickness is 2 cm; left renal cortical thickness is 1.9 cm. Renal cortical echotexture is normal. No hydronephrosis. No suspicious solid mass lesions. Within the right renal pelvis, there is an echogenic structure that measures up to 7 mm, with posterior shadowing. Multiple small echogenic foci can be seen within the left kidney, with the largest measuring up to 6 mm. Along the medial aspect of the right kidney, there is a 1.8 cm exophytic cyst. Bladder: Pre-void bladder volume is 167 mL. Post-void residual is 0 mL. Pre-void images demonstrate no intraluminal masses or stones. On pre-void images, neither of the ureteral jets are noted with color Doppler interrogation. (Of note, ureteral jets may not be detectable in up to 25% of cases due to insufficient differences in specific gravity between ureteral and bladder urine). Miscellaneous: No free pelvic fluid. IMPRESSION: Apparent bilateral nonobstructing renal stones. However, these are not well seen. Differential diagnosis includes artifact. If clinically appropriate, please consider a follow-up noncontrast CT of the abdomen and pelvis for further evaluation. No hydronephrosis is seen. No postvoid residual. Additional findings: 1.8 cm right medial cyst. Dictated by: Daniel Vasquez M.D. on 08/17/2022 at 13:54 Approved by: Daniel Vasquez M.D. on 08/17/2022 at 13:57
== END ==
LOC: US 12:07
PROVIDERS: PCP Registered Nurse; Referring Provider Naturopath; Visit Provider Naturopath
DX: N20.0 Calculus of kidney (principal); R10.32 Left lower quadrant pain; N28.1 Cyst of kidney, acquired
CPT/HCPCS: 76700; 76770

== ENCOUNTER → 2023-04-09 16:38 | Outpatient (CLI) | payer OTHER, SELFPAY ==
[2020-11-26 14:36] VITALS: BMI 25.9
--- NOTE | 2023-04-09 | DI.US.S_ITS ---
PROCEDURE: US ABDOMEN LIMITED INDICATIONS: SCROTAL PAIN TECHNIQUE: Real-time focused scanning was performed of the inguinal region, with image documentation. COMPARISON: [facility], CT, CT CHEST ABD PEL W CON, 11/26/2020, 8:33. FINDINGS: There is a non reducible left inguinal hernia which likely contains a loop of nondilated bowel. IMPRESSION: Findings suspicious for a non reducible, bowel containing left inguinal hernia. If further characterization is warranted, CT of the pelvis could be used. Dictated by: Aminata Jordan M.D. on 04/10/2023 at 9:00 Approved by: Aminata Jordan M.D. on 04/10/2023 at 9:07
== END ==
LOC: US 16:38
PROVIDERS: PCP Registered Nurse; Referring Provider Naturopath; Visit Provider Naturopath
DX: R10.32 Left lower quadrant pain (principal)
CPT/HCPCS: 76705

== ENCOUNTER → 2025-02-04 14:01 | Outpatient (CLI) | payer OTHER, MEDICARE, SELFPAY ==
[2020-11-26 14:36] VITALS: BMI 25.9
[2025-02-04 16:09] LABS: Prostate Specific Antigen < 0.064 ng/mL (0.10-4.00)
== END ==
PROVIDERS: PCP Registered Nurse; Referring Provider Registered Nurse; Visit Provider Urology
DX: C61 Malignant neoplasm of prostate (principal)
CPT/HCPCS: 36415; 84153